=== PATIENT | male | born 1945 | race Caucasian/White ===

== ENCOUNTER 2016-11-02 06:43 | Emergency (ER) | payer MEDICARE, SELFPAY ==
[2016-11-02] MEDS ORDERED: HYDROmorphone 1 MG/ML 1 ML SYRINGE IVP STA ×2 (07:28→09:16)
[2016-11-02] MEDS ORDERED: RX INFO: IV CONTRAST WAS GIVEN 1 EACH MISC MISCELLANE PRN (07:28)
[2016-11-02] MEDS ORDERED: SODIUM CHLORIDE 0.9% 1,000 ML IV STA ×2 (07:28)
[2016-11-02] MEDS ORDERED: ONDANSETRON 4 MG/2 ML VIAL IVP STA (07:28)
--- NOTE | 2016-11-02 07:38 | ED ---
General Adult HPI - General Chief complaint: Abdominal Pain Stated complaint: ABD PAIN,BACK PAIN Time Seen by Provider: 11/02/16 07:18 Source: patient, family, RN notes reviewed, old records reviewed Mode of arrival: ambulatory Limitations: no limitations - History of Present Illness Initial comments: This is a 71-year-old male here today for evaluation of back pain. Right flank pain and right back pain rating her abdomen and groin. Patient does have history of back pain and spinal stenosis, also has history of kidney stones. Patient can't say for sure if this feels like prior kidney stones. He has had nausea vomiting no fever no diarrhea. No significant abdominal pain no problems with appetite. He did take his pain medication at home with no help - Related Data Home Medications Medication Instructions Recorded Confirmed Aspirin 81 mg PO DAILY 04/25/16 11/02/16 Clopidogrel [Plavix] 75 mg PO DAILY 04/25/16 11/02/16 Furosemide [Lasix] 20 mg PO DAILY 04/25/16 11/02/16 Levothyroxine Sodium [Synthroid] 175 mcg PO DAILY 04/25/16 11/02/16 Lisinopril-Hctz 20-25 mg 1 tab PO DAILY 04/25/16 11/02/16 [Zestoretic 20-25] Metoprolol Succinate [Toprol XL] 12.5 mg PO DAILY 04/25/16 11/02/16 Multivitamins, Thera [Multivitamin] 1 tab PO DAILY 04/25/16 11/02/16 Nitroglycerin Sl Tabs [Nitrostat] 0.4 mg SUBLINGUAL Q5M PRN 04/25/16 11/02/16 Potassium Gluconate 595 mg PO DAILY 04/25/16 11/02/16 Sertraline [Zoloft] 50 mg PO DAILY 04/25/16 11/02/16 metFORMIN HCL [Glucophage] 500 mg PO BID 04/25/16 11/02/16 traMADol HCL [Ultram] 100 mg PO Q6HR PRN 04/25/16 11/02/16 Atorvastatin [Lipitor] 40 mg PO HS 11/02/16 11/02/16 Ranitidine HCl [Zantac] 300 mg PO HS 11/02/16 11/02/16 Allergies Allergy/AdvReac Type Severity Reaction Status Date / Time morphine Allergy Dyspnea Verified 11/02/16 06:50 oxycodone HCl Allergy Dyspnea Verified 11/02/16 06:50 [From OxyContin] Review of Systems ROS Statement: Those systems with pertinent positive or pertinent negative responses have been documented in the HPI. ROS Other: All systems not noted in ROS Statement are negative. Past Medical History Past Medical History: Coronary Artery Disease (CAD), COPD, Diabetes Mellitus, GERD/Reflux, Hyperlipidemia, Hypertension, Thyroid Disorder Additional Past Medical History / Comment(s): CHRONIC BACK History of Any Multi-Drug Resistant Organisms: None Reported Past Surgical History: Appendectomy, Hernia Repair, Orthopedic Surgery Additional Past Surgical History / Comment(s): LEFT ARM, SINUS SURGERY, LEFT LEG Past Psychological History: No Psychological Hx Reported Smoking Status: Former smoker Past Alcohol Use History: None Reported Past Drug Use History: None Reported General Exam Limitations: no limitations General appearance: alert, in no apparent distress Head exam: Present: atraumatic, normocephalic, normal inspection Eye exam: Present: normal appearance, PERRL, EOMI. Absent: scleral icterus, conjunctival injection, periorbital swelling ENT exam: Present: normal exam, mucous membranes moist Neck exam: Present: normal inspection. Absent: tenderness, meningismus, lymphadenopathy Respiratory exam: Present: normal lung sounds bilaterally. Absent: respiratory distress, wheezes, rales, rhonchi, stridor Cardiovascular Exam: Present: regular rate, normal rhythm, normal heart sounds. Absent: systolic murmur, diastolic murmur, rubs, gallop, clicks GI/Abdominal exam: Present: soft, normal bowel sounds. Absent: distended, tenderness, guarding, rebound, rigid Extremities exam: Present: normal inspection, full ROM, normal capillary refill. Absent: tenderness, pedal edema, joint swelling, calf tenderness Back exam: Present: normal inspection Neurological exam: Present: alert, oriented X3, CN II-XII intact Psychiatric exam: Present: normal affect, normal mood Skin exam: Present: warm, dry, intact, normal color. Absent: rash Course Vital Signs 11/02/16 11/02/16 11/02/16 06:45 08:06 10:27 Temperature 97.9 F 97.7 F 97.8 F Pulse Rate 53 L 53 L 54 L Respiratory 18 16 16 Rate Blood Pressure 154/69 123/83 138/61 O2 Sat by Pulse 95 88 L 94 L Oximetry - Reevaluation(s) Reevaluation #1: 11/02/16 10:40 At this time patient's pain is improved EKG Findings - EKG Comments: EKG Findings:: EKG shows sinus Picardi rate 73, LA 186, QRS 106, QTC 418 Medical Decision Making - Medical Decision Making 16 mL the ER for evaluation of flank pain. Right-sided kidney stone. We'll treat appropriately and discharged home, kidney function is fine, no UTI - Lab Data Result diagrams: 11/02/16 07:54 11/02/16 07:54 Lab Results 11/02/16 11/02/16 11/02/16 Range/Units 07:54 07:54 07:54 WBC 10.4 (3.8-10.6) k/uL RBC 5.08 (4.30-5.90) m/uL Hgb 15.5 (13.0-17.5) gm/dL Hct 46.9 (39.0-53.0) % MCV 92.4 (80.0-100.0) fL MCH 30.6 (25.0-35.0) pg MCHC 33.1 (31.0-37.0) g/dL RDW 13.0 (11.5-15.5) % Plt Count 180 (150-450) k/uL Neutrophils % 80 % Lymphocytes % 13 % Monocytes % 4 % Eosinophils % 1 % Basophils % 1 % Neutrophils # 8.4 H (1.3-7.7) k/uL Lymphocytes # 1.3 (1.0-4.8) k/uL Monocytes # 0.4 (0-1.0) k/uL Eosinophils # 0.1 (0-0.7) k/uL Basophils # 0.1 (0-0.2) k/uL PT (9.0-12.0) sec INR (<1.1) APTT (22.0-30.0) sec Sodium 142 (137-145) mmol/L Potassium 4.2 (3.5-5.1) mmol/L Chloride 99 (98-107) mmol/L Carbon Dioxide 29 (22-30) mmol/L Anion Gap 14 mmol/L BUN 30 H (9-20) mg/dL Creatinine 1.33 H (0.66-1.25) mg/dL Est GFR (MDRD) Af Amer >60 (>60 ml/min/1.73 sqM) Est GFR (MDRD) Non-Af 53 (>60 ml/min/1.73 sqM) Glucose 143 H (74-99) mg/dL Plasma Lactic Acid Clyde (0.7-2.0) mmol/L Calcium 10.1 (8.4-10.2) mg/dL Phosphorus 3.4 (2.5-4.5) mg/dL Magnesium 3.0 H (1.6-2.3) mg/dL Total Bilirubin 0.9 (0.2-1.3) mg/dL AST 37 (17-59) U/L ALT 48 (21-72) U/L Alkaline Phosphatase 74 (38-126) U/L Total Creatine Kinase 84 (55-170) U/L CK-MB (CK-2) 2.0 (0.0-2.4) ng/mL CK-MB (CK-2) Rel Index 2.4 Troponin I 0.016 (0.000-0.034) ng/mL Total Protein 7.5 (6.3-8.2) g/dL Albumin 4.4 (3.5-5.0) g/dL Urine Color Urine Appearance (Clear) Urine pH (5.0-8.0) Ur Specific Adams (1.001-1.035) Urine Protein (Negative) Urine Glucose (UA) (Negative) Urine Ketones (Negative) Urine Blood (Negative) Urine Nitrite (Negative) Urine Bilirubin (Negative) Urine Urobilinogen (<2.0) mg/dL Ur Leukocyte Esterase (Negative) Urine RBC (0-5) /hpf Urine WBC (0-5) /hpf 11/02/16 11/02/16 11/02/16 Range/Units 07:54 07:54 09:05 WBC (3.8-10.6) k/uL RBC (4.30-5.90) m/uL Hgb (13.0-17.5) gm/dL Hct (39.0-53.0) % MCV (80.0-100.0) fL MCH (25.0-35.0) pg MCHC (31.0-37.0) g/dL RDW (11.5-15.5) % Plt Count (150-450) k/uL Neutrophils % % Lymphocytes % % Monocytes % % Eosinophils % % Basophils % % Neutrophils # (1.3-7.7) k/uL Lymphocytes # (1.0-4.8) k/uL Monocytes # (0-1.0) k/uL Eosinophils # (0-0.7) k/uL Basophils # (0-0.2) k/uL PT 10.5 (9.0-12.0) sec INR 1.0 (<1.1) APTT 22.7 (22.0-30.0) sec Sodium (137-145) mmol/L Potassium (3.5-5.1) mmol/L Chloride (98-107) mmol/L Carbon Dioxide (22-30) mmol/L Anion Gap mmol/L BUN (9-20) mg/dL Creatinine (0.66-1.25) mg/dL Est GFR (MDRD) Af Amer (>60 ml/min/1.73 sqM) Est GFR (MDRD) Non-Af (>60 ml/min/1.73 sqM) Glucose (74-99) mg/dL Plasma Lactic Acid Clyde 1.4 (0.7-2.0) mmol/L Calcium (8.4-10.2) mg/dL Phosphorus (2.5-4.5) mg/dL Magnesium (1.6-2.3) mg/dL Total Bilirubin (0.2-1.3) mg/dL AST (17-59) U/L ALT (21-72) U/L Alkaline Phosphatase (38-126) U/L Total Creatine Kinase (55-170) U/L CK-MB (CK-2) (0.0-2.4) ng/mL CK-MB (CK-2) Rel Index Troponin I (0.000-0.034) ng/mL Total Protein (6.3-8.2) g/dL Albumin (3.5-5.0) g/dL Urine Color Light Red Urine Appearance Clear (Clear) Urine pH 6.5 (5.0-8.0) Ur Specific Adams 1.016 (1.001-1.035) Urine Protein Trace H (Negative) Urine Glucose (UA) Negative (Negative) Urine Ketones Negative (Negative) Urine Blood Large H (Negative) Urine Nitrite Negative (Negative) Urine Bilirubin Negative (Negative) Urine Urobilinogen 2.0 (<2.0) mg/dL Ur Leukocyte Esterase Negative (Negative) Urine RBC >182 H (0-5) /hpf Urine WBC 5 (0-5) /hpf - Radiology Data Radiology results: report reviewed (CT head and pelvis shows right-sided kidney stone,), image reviewed Disposition Clinical Impression: Calculus of right kidney Disposition: HOME SELF-CARE Condition: Good Instructions: Kidney Stones (ED) Referrals: Jarrett Solis DO [Primary Care Provider] - 1-2 days
[2016-11-02 08:23] LABS: Basophils # (A) 0.1 k/uL (0-0.2); Basophils % (A) 1 %; CH 31.2; CHCM 33.9; Eosinophils # (A) 0.1 k/uL (0-0.7); Eosinophils % (A) 1 %; HCT 46.9 % (39.0-53.0); HDW 2.35; HGB 15.5 gm/dL (13.0-17.5); Luc # (Auto) 0.13; Luc % (Auto) 1; Lymphocytes # (A) 1.3 k/uL (1.0-4.8); Lymphocytes % (A) 13 %; MCH 30.6 pg (25.0-35.0); MCHC 33.1 g/dL (31.0-37.0); MCV 92.4 fL (80.0-100.0); Mean Platelet Volume 9.5; Monocytes # (A) 0.4 k/uL (0-1.0); Monocytes % (A) 4 %; Neutrophils # (A) 8.4 k/uL (1.3-7.7); Neutrophils % (A) 80 %; RBC 5.08 m/uL (4.30-5.90); WBC 10.4 k/uL (3.8-10.6); WBC (Perox) 9.96
[2016-11-02 08:44] LABS: ALT 48 U/L (21-72); AST 37 U/L (17-59); Alkaline Phosphatase 74 U/L (38-126); Anion Gap 14 mmol/L; Blood Urea Nitrogen 30 mg/dL (9-20); Calcium 10.1 mg/dL (8.4-10.2); Carbon Dioxide 29 mmol/L (22-30); Chloride 99 mmol/L (98-107); Glucose 143 mg/dL (74-99); Non-African American GFR(MDRD) 53 (>60 ml/min/1.73 sqM); Phosphorous 3.4 mg/dL (2.5-4.5); Potassium 4.2 mmol/L (3.5-5.1); Sodium 142 mmol/L (137-145); Total Bilirubin 0.9 mg/dL (0.2-1.3); Total Protein 7.5 g/dL (6.3-8.2)
[2016-11-02 08:49] LABS: Partial Thromboplastin Time 22.7 sec (22.0-30.0); Prothrombin Time 10.5 sec (9.0-12.0)
[2016-11-02] MEDS ORDERED: ACETAMINOPHEN IV (For NPO) 1,000 MG in EMPTY BAG 1 BAG IVPB STA (09:16)
[2016-11-02] MEDS ORDERED: KETOROLAC 30 MG/ML 1 ML VIAL IVP STA (09:16)
[2016-11-02 09:19] LABS: Troponin I 0.016 ng/mL (0.000-0.034)
[2016-11-02 09:31] LABS: Appearance,Urine Clear (Clear); Bilirubin,Urine Negative (Negative); Glucose,Urine (UA) Negative (Negative); Ketones,Urine Negative (Negative); Leukocyte Esterase,Urine Negative (Negative); Nitrite,Urine Negative (Negative); PH, Urine 6.5 (5.0-8.0); Particle Count 3547; Protein,Urine Trace (Negative); RBC,Urine >182 /hpf (0-5); Specific Gravity,Urine 1.016 (1.001-1.035); UA Billing (MACRO vs. MICRO) MICRO; WBC,Urine 5 /hpf (0-5)
--- NOTE | 2016-11-02 10:16 | CT ---
EXAMINATION TYPE: CT abdomen pelvis w con DATE OF EXAM: 11/02/2016 9:51 AM COMPARISON: Prior CT 25 April 2016 HISTORY: Rt flank and back pain CT DLP: 2981 mGycm Automated exposure control for dose reduction was used. TECHNIQUE: Helical acquisition of images was performed from the lung bases through the pelvis. CONTRAST: Performed without Oral Contrast and with IV Contrast, patient injected with 80 mL of Visipaque 320. FINDINGS: LUNG BASES: No significant abnormality is appreciated.Suspect coronary artery calcifications. LIVER/GB: Liver shows low attenuation. There is borderline enlargement. Gallbladder is normal. PANCREAS: No significant abnormality is seen. SPLEEN: No significant abnormality is seen. ADRENALS: Fat density right adrenal mass is noted and is stable on the right measuring only 12 mm KIDNEYS: Bilateral renal calculi are again noted, single calculus of the lower pole of the left kidne y measures 7-8 mm. Lower pole calculi on the right major 6 to 7 mm and approximately 9-10 mm, mid nadeen e posterior right calculus is 1 cm. Proximal right ureteral calculus is present which is developed in the interval, there is mild right-sided hydronephrosis. The proximal ureteral calculus on the right measures approximately 5 mm. Nephrogram on the right may be slightly reduced. RETROPERITONEAL ADENOPATHY: None visualized REPRODUCTIVE ORGANS: Prostate calcification present. URINARY BLADDER: No significant abnormality is seen. PELVIC ADENOPATHY: None visualized. OSSEOUS STRUCTURES: No significant interval change BOWEL: No significant abnormality is seen. OTHER: Focus of attenuation in the subcutaneous fat may be related to scar, there is some atrophy of the lateral aspect of the rectus musculature near this level, findings are stable IMPRESSION: PROXIMAL RIGHT URETERAL CALCULUS APPEARS OBSTRUCTIVE, THERE IS BILATERAL NEPHROLITHIASIS.
[2016-11-02 10:28] VITALS: TEMP 97.8
[2016-11-02 10:47] VITALS: BP 127/57; PULSE 53; RESP 18
== END 2016-11-02 11:10 | disposition home or self-care (01) ==
LOC: EC 06:43
DX: N20.2 Calculus of kidney with calculus of ureter (principal); I25.10 Atherosclerotic heart disease of native coronary artery without angina pectoris; J44.9 Chronic obstructive pulmonary disease, unspecified; E11.9 Type 2 diabetes mellitus without complications; K21.9 Gastro-esophageal reflux disease without esophagitis; E78.5 Hyperlipidemia, unspecified; I10 Essential (primary) hypertension; E07.9 Disorder of thyroid, unspecified; Z87.891 Personal history of nicotine dependence; Z79.82 Long term (current) use of aspirin; Z79.02 Long term (current) use of antithrombotics/antiplatelets; Z79.899 Other long term (current) drug therapy; Z79.84 Long term (current) use of oral hypoglycemic drugs; Z88.5 Allergy status to narcotic agent
CPT/HCPCS: 99285 ×2; 96374 ×2; 96375 ×4; 96376 ×2; 96361 ×4; 36415; 80053; 82550; 82553; 83605; 83735; 84100; 84484; 85025; 85610; 85730; 81001; 87086; 74177; Q9967; J2405; J1885; J1170; J0131; 93005

== ENCOUNTER → 2016-11-27 | Outpatient (CLI) | payer MEDICARE ==
[2016-11-27 10:31] LABS: Appearance,Urine Clear (Clear); Bilirubin,Urine Negative (Negative); Glucose,Urine (UA) Negative (Negative); Ketones,Urine Negative (Negative); Leukocyte Esterase,Urine Negative (Negative); Nitrite,Urine Negative (Negative); PH, Urine 6.5 (5.0-8.0); Protein,Urine Negative (Negative); Specific Gravity,Urine 1.014 (1.001-1.035); UA Billing (MACRO vs. MICRO) CHEM; Urobilinogen,Urine <2.0 mg/dL (<2.0)
[2016-11-27 11:13] LABS: ALT 38 U/L (21-72); AST 30 U/L (17-59); Anion Gap 12 mmol/L; Blood Urea Nitrogen 26 mg/dL (9-20); Calcium 9.9 mg/dL (8.4-10.2); Carbon Dioxide 27 mmol/L (22-30); Chloride 101 mmol/L (98-107); Glucose 104 mg/dL (74-99); Non-African American GFR(MDRD) >60 (>60 ml/min/1.73 sqM); Potassium 4.2 mmol/L (3.5-5.1); Sodium 140 mmol/L (137-145)
== END | disposition home or self-care (01) ==
LOC: LABWHC1 09:53
PROVIDERS: ATTEND Internal Medicine
DX: I25.10 Atherosclerotic heart disease of native coronary artery without angina pectoris (principal); E11.22 Type 2 diabetes mellitus with diabetic chronic kidney disease; I10 Essential (primary) hypertension; E78.2 Mixed hyperlipidemia
CPT/HCPCS: 36415; 80048; 81003; 83036; 84450; 84460

== ENCOUNTER → 2016-12-31 | Outpatient (CLI) | payer OTHER, MEDICARE ==
--- NOTE | 2017-01-01 00:50 | US ---
EXAMINATION TYPE: US kidneys/renal and bladder DATE OF EXAM: 12/31/2016 3:00 PM COMPARISON: Correlation CT 11/02/2016 CLINICAL HISTORY: 71-year-old male N20.0 CALCULUS OF KIDNEY. Kidney stones TECHNIQUE: Multiple sonographic images of the kidneys and bladder were obtained. FINDINGS: Right Kidney: 9.9 x 5.3 x 4.5 cm without appreciable hydronephrosis. There is a 1.6 cm shadowing ech ogenic focus within the lower pole. Additionally, there is a 1.8 cm hypoechoic lesion within the midp ole. When correlating with prior CT, findings suggest a central cyst. Internal echoes are felt to be artifactual or could represent debris. Left Kidney: 12.3 x 5.4 x 4.9 cm without hydronephrosis. There is a 1.0 cm echogenic shadowing focus within the lower pole. No gross abnormality of the urine distended bladder. Both ureteral jets are visualized. IMPRESSION: 1. Bilateral nephrolithiasis measuring up to 1.8 cm on the right. 2. No hydronephrosis seen on the either side. Both ureteral jets are also visualized.
== END | disposition home or self-care (01) ==
LOC: RADUSWWP 14:13
PROVIDERS: ATTEND Urology
DX: N20.0 Calculus of kidney (principal)
CPT/HCPCS: 76770

== ENCOUNTER → 2017-03-25 | Outpatient (CLI) | payer OTHER, MEDICARE ==
[2017-03-25 12:40] LABS: CH 31.4; CHCM 33.2; HCT 43.7 % (39.0-53.0); HDW 2.37; HGB 14.2 gm/dL (13.0-17.5); MCHC 32.6 g/dL (31.0-37.0); MCV 95.2 fL (80.0-100.0); Mean Platelet Volume 9.6; RBC 4.59 m/uL (4.30-5.90); RDW 14.3 % (11.5-15.5); WBC 8.4 k/uL (3.8-10.6)
[2017-03-25 12:50] LABS: Appearance,Urine Clear (Clear); Bilirubin,Urine Negative (Negative); Glucose,Urine (UA) Negative (Negative); Ketones,Urine Negative (Negative); Leukocyte Esterase,Urine Negative (Negative); Nitrite,Urine Negative (Negative); Protein,Urine Negative (Negative); Specific Gravity,Urine 1.014 (1.001-1.035); UA Billing (MACRO vs. MICRO) CHEM
[2017-03-25 18:49] LABS: Hemoglobin A1C 5.8 % (4.2-6.1)
[2017-03-26 01:58] LABS: Urine Creatinine 98.3 mg/dL
== END | disposition home or self-care (01) ==
LOC: LABWHC1 12:10
PROVIDERS: ATTEND Internal Medicine
DX: E11.9 Type 2 diabetes mellitus without complications (principal); I10 Essential (primary) hypertension; E78.2 Mixed hyperlipidemia; E03.9 Hypothyroidism, unspecified; I25.10 Atherosclerotic heart disease of native coronary artery without angina pectoris
CPT/HCPCS: 36415; 80061; 81003; 82043; 82570; 83036; 84439; 84443; 84450; 84460; 85027; 86431

== ENCOUNTER → 2017-04-23 | Outpatient (CLI) | payer MEDICARE ==
--- NOTE | 2017-04-23 15:41 | CONS ---
CONSULTATION This is a 72-year-old male patient, diagnosed having obstructive sleep apnea around 20 years ago. Back then, the patient was seen by the ENT and had chronic sinus disease for which he underwent a sinus surgery and this was complicated by development of a CSF leak. Subsequently required several other surgeries to control the CSF leak and he was unable to use the CPAP for that reason. Ultimately, it was recommended not to use CPAP due to the CSF complications that occurred and the patient was given oxygen. Over the years, the patient's condition has gotten worse and currently he is coming in with loud snoring with his apnea and chronic hypersomnia with sleepiness. His sleep/wake cycle has become irregular. He goes to bed somewhere between 11 pm to 1 am and he wakes up between 10 am to noon time. He is tired and sleepy and fatigued throughout the day. He snores loud. He tries to sleep on his side as he feels more comfortable. His sinus disease is improved and he is able to breathe through his nose and mouth. At times, he is a mouth breather. He is coming in for reevaluation. No nocturia. No waking up in the middle of the night gasping or choking. No grinding of the teeth. No sleepwalking or sleep talking. No restlessness of the lower extremities. PAST MEDICAL HISTORY: 1. Obstructive sleep apnea, details as mentioned above. 2. CSF leak, a complication of sinus surgery. 3. Hypertension. 4. Hypothyroidism. 5. Coronary artery disease. 6. Obesity. 7. Osteoarthritis. 8. Spinal stenosis with chronic lumbar pain. 9. Acid reflux. SURGICAL HISTORY: Include sinus surgery x3 with repair of a CSF leak, hernia repair, left arm surgery. ALLERGIES: MORPHINE and OXYCONTIN. OUTPATIENT MEDICATION LIST: A combination of tramadol 50 mg every 6-8 hours on a p.r.n. basis, Cyuln-[id number]-Igzv, potassium tablets, Nitrostat p.r.n., Plavix 75 q. day, aspirin 81 q. day, Zoloft 150 q. day, Lasix 20 q. day, Synthroid 175 mcg p.o. q. day, Zestoretic 20/25 one tab q. day, metformin 500 mg twice a day. SOCIAL HISTORY: Not a smoker. No history of alcohol. No history of IV drugs. FAMILY HISTORY: Sister has obstructive sleep apnea. Mother has hypertension. Brother has prostate cancer and father had [place] pneumoconiosis. REVIEW OF SYSTEMS: A 12-point review of system was done and the positive findings are mentioned above in the history of present illness. BP is 134/70, pulse 52, respirations 16, temperature 98.0, saturation 93% on room air. Weight is 276. Height is 5, 9, neck size is 18 inches. GENERAL APPEARANCE: Calm, comfortable. HEENT showed crowing of the posterior pharynx, Mallampati class IV. LUNGS: Clear to auscultation. Heart sounds are regular rate and rhythm. Normal S1, S2. ABDOMEN: Soft, nontender. No organomegaly. EXTREMITIES: No edema. No cyanosis or clubbing. IMPRESSION: 1. Symptomatic obstructive sleep apnea. Patient is coming in for reevaluation as the patient has become symptomatic over the years. His current Beaver score is at 12. 2. Obesity body mass index of 40.1. 3. Previous history of CSF leak. 4. Post sinus surgery, currently stable. 5. Hypertension. 6. Hypothyroidism. 7. Coronary artery disease. 8. Osteoarthritis. 9. Chronic lumbar stenosis and pain. 10.Acid reflux. PLAN: 1. Will proceed with a screening polysomnogram. 2. Will assess the presence and severity of suspected sleep apnea, recommend CPAP treatment accordingly. 3. Encourage weight loss. 4. Optimize sleep hygiene measures. 5. Will continue to follow. MMLEAL / IJN: [id number] /
== END ==
LOC: SLEEP 13:03
PROVIDERS: ATTEND Internal Medicine Critical Care Medicine
DX: G47.33 Obstructive sleep apnea (adult) (pediatric) (principal); E66.9 Obesity, unspecified; I10 Essential (primary) hypertension; I25.10 Atherosclerotic heart disease of native coronary artery without angina pectoris; E03.9 Hypothyroidism, unspecified; M19.90 Unspecified osteoarthritis, unspecified site; M48.06 Spinal stenosis, lumbar region; K21.9 Gastro-esophageal reflux disease without esophagitis; Z88.5 Allergy status to narcotic agent; Z88.8 Allergy status to other drugs, medicaments and biological substances; Z79.899 Other long term (current) drug therapy; Z79.82 Long term (current) use of aspirin; Z79.84 Long term (current) use of oral hypoglycemic drugs
CPT/HCPCS: 99211

== ENCOUNTER → 2017-11-20 | Outpatient (CLI) | payer MEDICARE ==
[2017-11-20 09:01] LABS: HCT 43.3 % (39.0-53.0); HGB 14.2 gm/dL (13.0-17.5); MCH 29.3 pg (25.0-35.0); MCHC 32.8 g/dL (31.0-37.0); MCV 89.2 fL (80.0-100.0); Mean Platelet Volume 8.6; Platelet Count 183 k/uL (150-450); RBC 4.85 m/uL (4.30-5.90); RDW 14.2 % (11.5-15.5); WBC 8.6 k/uL (3.8-10.6)
[2017-11-20 09:09] LABS: Appearance,Urine Clear (Clear); Bilirubin,Urine Negative (Negative); Blood,Urine Trace (Negative); Color,Urine Yellow; Glucose,Urine (UA) Negative (Negative); Ketones,Urine Negative (Negative); Leukocyte Esterase,Urine Negative (Negative); Mucus,Urine Rare /hpf; Nitrite,Urine Negative (Negative); PH, Urine 5.5 (5.0-8.0); Protein,Urine Negative (Negative); RBC,Urine 10 /hpf (0-5); Specific Gravity,Urine 1.018 (1.001-1.035); Squamous Epithelial Cell,Urine 1 /hpf (0-4); Urobilinogen,Urine <2.0 mg/dL (<2.0); WBC,Urine 1 /hpf (0-5)
[2017-11-20 09:43] LABS: Calcium 10.1 mg/dL (8.4-10.2); Total Bilirubin 0.4 mg/dL (0.2-1.3); Total Protein 6.8 g/dL (6.3-8.2)
[2017-11-20 09:49] LABS: T4, Free (Free Thyroxine) 0.85 ng/dL (0.78-2.19)
[2017-11-20 20:55] LABS: Hemoglobin A1C 5.6 % (4.0-6.0)
== END | disposition home or self-care (01) ==
LOC: LABWHC1 08:37
PROVIDERS: ATTEND Internal Medicine
DX: E11.9 Type 2 diabetes mellitus without complications (principal); I10 Essential (primary) hypertension; E78.2 Mixed hyperlipidemia; E03.9 Hypothyroidism, unspecified
CPT/HCPCS: 36415; 80053; 80061; 81001; 83036; 84439; 84443; 85027

== ENCOUNTER → 2018-03-24 | Outpatient (CLI) | payer MEDICARE ==
[2018-03-24 10:54] LABS: Appearance,Urine Clear (Clear); Bilirubin,Urine Negative (Negative); Blood,Urine Negative (Negative); Color,Urine Yellow; Glucose,Urine (UA) Negative (Negative); Ketones,Urine Negative (Negative); Leukocyte Esterase,Urine Negative (Negative); Nitrite,Urine Negative (Negative); Protein,Urine Negative (Negative); Specific Gravity,Urine 1.015 (1.001-1.035)
[2018-03-24 11:09] LABS: HCT 46.7 % (39.0-53.0); HGB 14.8 gm/dL (13.0-17.5); MCH 28.6 pg (25.0-35.0); MCHC 31.6 g/dL (31.0-37.0); MCV 90.6 fL (80.0-100.0); Mean Platelet Volume 8.2; Platelet Count 194 k/uL (150-450); RBC 5.16 m/uL (4.30-5.90); RDW 13.9 % (11.5-15.5); WBC 7.4 k/uL (3.8-10.6)
[2018-03-24 11:21] LABS: Albumin 4.3 g/dL (3.5-5.0); Calcium 9.9 mg/dL (8.4-10.2); Potassium 4.7 mmol/L (3.5-5.1); Total Bilirubin 0.6 mg/dL (0.2-1.3); Total Protein 6.9 g/dL (6.3-8.2)
[2018-03-24 18:16] LABS: Hemoglobin A1C 5.8 % (4.0-6.0)
== END | disposition home or self-care (01) ==
LOC: LABWHC1 10:02
PROVIDERS: ATTEND Internal Medicine
DX: E11.40 Type 2 diabetes mellitus with diabetic neuropathy, unspecified (principal); E78.00 Pure hypercholesterolemia, unspecified; I10 Essential (primary) hypertension
CPT/HCPCS: 36415; 80053; 80061; 81003; 82043; 82570; 83036; 85027; 86803

== ENCOUNTER → 2018-08-26 | Outpatient (CLI) | payer MEDICARE ==
[2018-08-26 12:39] LABS: Appearance,Urine Clear (Clear); Bilirubin,Urine Negative (Negative); Blood,Urine Negative (Negative); Color,Urine Yellow; Glucose,Urine (UA) Negative (Negative); Ketones,Urine Negative (Negative); Leukocyte Esterase,Urine Negative (Negative); Nitrite,Urine Negative (Negative); Protein,Urine Negative (Negative); Specific Gravity,Urine 1.013 (1.001-1.035); Urobilinogen,Urine <2.0 mg/dL (<2.0)
[2018-08-26 16:36] LABS: Albumin 4.3 g/dL (3.80-4.90); Albumin/Globulin Ratio 2.05 (1.20-2.10); Anion Gap 7.9 mmol/L (4.00-12.00); Calcium 9.5 mg/dL (8.7-10.3); Carbon Dioxide 28.1 mmol/L (21.6-31.8); Globulin 2.1 g/dL (1.6-3.3); Potassium 4.2 mmol/L (3.5-5.5); Total Bilirubin 0.6 mg/dL (0.2-1.2); Total Protein 6.4 g/dL (6.2-8.2)
[2018-08-26 16:45] LABS: T4, Free (Free Thyroxine) 1.7 ng/dL (0.80-1.80)
[2018-08-26 18:21] LABS: Hemoglobin A1C 5.7 % (4.0-6.0)
== END | disposition home or self-care (01) ==
LOC: LABWHC1 10:08
PROVIDERS: ATTEND Internal Medicine
DX: I10 Essential (primary) hypertension (principal); E11.40 Type 2 diabetes mellitus with diabetic neuropathy, unspecified; G03.9 Meningitis, unspecified
CPT/HCPCS: 36415; 80053; 81003; 83036; 84439; 84443

== ENCOUNTER → 2019-02-23 | Outpatient (CLI) | payer MEDICARE ==
[2019-02-23 13:05] LABS: HCT 45.1 % (39.0-53.0); HGB 14.6 gm/dL (13.0-17.5); MCH 29.8 pg (25.0-35.0); MCHC 32.4 g/dL (31.0-37.0); Mean Platelet Volume 8.4; Platelet Count 197 k/uL (150-450); WBC 7.9 k/uL (3.8-10.6)
[2019-02-23 13:22] LABS: Appearance,Urine Clear (Clear); Bilirubin,Urine Negative (Negative); Blood,Urine Negative (Negative); Color,Urine Yellow; Glucose,Urine (UA) Negative (Negative); Ketones,Urine Negative (Negative); Leukocyte Esterase,Urine Trace (Negative); Mucus,Urine Rare /hpf; Nitrite,Urine Negative (Negative); PH, Urine 5.5 (5.0-8.0); Protein,Urine Negative (Negative); Specific Gravity,Urine 1.013 (1.001-1.035); Squamous Epithelial Cell,Urine 1 /hpf (0-4); Urobilinogen,Urine <2.0 mg/dL (<2.0); WBC,Urine 3 /hpf (0-5)
[2019-02-23 18:09] LABS: African American GFR (CKD) 77.3 (60.0-200.0); Albumin 4.3 g/dL (3.80-4.90); Albumin/Globulin Ratio 2.26 (1.60-3.17); Anion Gap 8.4 mmol/L (4.00-12.00); BUN/Creat Ratio 20.91 Ratio (12.00-20.00); Calcium 9.9 mg/dL (8.7-10.3); Carbon Dioxide 26.6 mmol/L (21.6-31.8); Globulin 1.9 g/dL (1.6-3.3); LDL Cholesterol,Calculated 73.2 mg/dL (0.0-131.0); Potassium 4.6 mmol/L (3.5-5.5); Total Bilirubin 0.7 mg/dL (0.2-1.2); Total Protein 6.2 g/dL (6.2-8.2); VLDL Calculation 18.8 mg/dL (5.00-40.00)
[2019-02-23 19:19] LABS: Hemoglobin A1C 5.7 % (4.0-6.0)
== END | disposition home or self-care (01) ==
LOC: LABWHC1 12:07
PROVIDERS: ATTEND Internal Medicine
DX: E11.9 Type 2 diabetes mellitus without complications (principal); I10 Essential (primary) hypertension; E78.2 Mixed hyperlipidemia
CPT/HCPCS: 36415; 80053; 80061; 81001; 82043; 82570; 83036; 85027

== ENCOUNTER → 2020-04-29 | Outpatient (CLI) | payer MEDICARE ==
[2020-04-29 12:33] LABS: Appearance,Urine Clear (Clear); Bilirubin,Urine Negative (Negative); Blood,Urine Large (Negative); Color,Urine Yellow; Glucose,Urine (UA) Negative (Negative); Hyaline Casts,Urine 1 /lpf (0-2); Ketones,Urine Negative (Negative); Leukocyte Esterase,Urine Small (Negative); Mucus,Urine Rare /hpf; Nitrite,Urine Negative (Negative); Protein,Urine Trace (Negative); RBC,Urine 135 /hpf (0-5); Specific Gravity,Urine 1.021 (1.001-1.035); Squamous Epithelial Cell,Urine <1 /hpf (0-4); Urobilinogen,Urine <2.0 mg/dL (<2.0); WBC,Urine 5 /hpf (0-5)
[2020-04-29 12:37] LABS: HCT 48.5 % (39.0-53.0); HGB 15.5 gm/dL (13.0-17.5); MCH 30.4 pg (25.0-35.0); MCV 95.1 fL (80.0-100.0); Mean Platelet Volume 9.1; Platelet Count 175 k/uL (150-450); RDW 13.5 % (11.5-15.5); WBC 8.4 k/uL (3.8-10.6)
[2020-04-29 20:30] LABS: Hemoglobin A1C 6.1 % (4.0-6.0)
[2020-04-29 21:53] LABS: African American GFR (CKD) 76.8 (60.0-200.0); Albumin 4.3 g/dL (3.80-4.90); Albumin/Globulin Ratio 2.05 (1.60-3.17); Anion Gap 6.7 mmol/L (4.00-12.00); BUN/Creat Ratio 16.36 Ratio (12.00-20.00); Calcium 10.1 mg/dL (8.7-10.3); Carbon Dioxide 30.3 mmol/L (21.6-31.8); Chol/HDL Ratio 2.54; Globulin 2.1 g/dL (1.6-3.3); LDL Cholesterol,Calculated 53.8 mg/dL (0.0-131.0); Non-African American GFR(CKD) 66.2 (60.0-200.0); Potassium 4.4 mmol/L (3.5-5.5); Total Bilirubin 0.7 mg/dL (0.3-1.2); Total Protein 6.4 g/dL (6.2-8.2); VLDL Calculation 17.2 mg/dL (5.00-40.00)
== END | disposition home or self-care (01) ==
LOC: LABWHC1 11:05
PROVIDERS: ATTEND Internal Medicine
DX: E11.40 Type 2 diabetes mellitus with diabetic neuropathy, unspecified (principal); I10 Essential (primary) hypertension; E78.00 Pure hypercholesterolemia, unspecified
CPT/HCPCS: 36415; 80053; 80061; 81001; 82043; 82570; 83036; 85027

== ENCOUNTER → 2021-01-25 | Outpatient (CLI) | payer MEDICARE ==
[2021-01-25 17:13] LABS: African American GFR (CKD) 62.3 (60.0-200.0); Albumin 4.4 g/dL (3.80-4.90); Albumin/Globulin Ratio 1.76 (1.60-3.17); Anion Gap 10.3 mmol/L (4.00-12.00); BUN/Creat Ratio 22.31 Ratio (12.00-20.00); Calcium 9.8 mg/dL (8.7-10.3); Carbon Dioxide 26.7 mmol/L (21.6-31.8); Globulin 2.5 g/dL (1.6-3.3); Non-African American GFR(CKD) 53.8 (60.0-200.0); Potassium 4.1 mmol/L (3.5-5.5); Total Bilirubin 0.4 mg/dL (0.3-1.2); Total Protein 6.9 g/dL (6.2-8.2)
[2021-01-25 17:21] LABS: PSA Annual Screen 0.8 ng/mL (0.0-4.0); T4, Free (Free Thyroxine) 1.2 ng/dL (0.80-1.80)
[2021-01-25 19:43] LABS: Hemoglobin A1C 5.7 % (4.0-6.0)
== END | disposition home or self-care (01) ==
LOC: LABWHC1 09:10
PROVIDERS: ATTEND Internal Medicine
DX: Z12.5 Encounter for screening for malignant neoplasm of prostate (principal); E11.40 Type 2 diabetes mellitus with diabetic neuropathy, unspecified; I10 Essential (primary) hypertension; E03.9 Hypothyroidism, unspecified
CPT/HCPCS: 84439; 80053; 84443; 83036; 36415; G0103

== ENCOUNTER → 2021-06-06 | Outpatient (CLI) | payer MEDICARE ==
[2021-06-06 16:04] LABS: Appearance,Urine Clear (Clear); Bilirubin,Urine Negative (Negative); Blood,Urine Moderate (Negative); Color,Urine Yellow; Glucose,Urine (UA) Negative (Negative); Hyaline Casts,Urine 3 /lpf (0-2); Ketones,Urine Negative (Negative); Leukocyte Esterase,Urine Negative (Negative); Mucus,Urine Rare /hpf; Nitrite,Urine Negative (Negative); Protein,Urine Trace (Negative); RBC,Urine 103 /hpf (0-5); Specific Gravity,Urine 1.017 (1.001-1.035); Squamous Epithelial Cell,Urine <1 /hpf (0-4); Urobilinogen,Urine <2.0 mg/dL (<2.0); WBC,Urine 2 /hpf (0-5)
[2021-06-06 22:56] LABS: Basophils # (A) 0.08 X 10*3/uL (0.00-0.10); Basophils % (A) 0.9 %; Eosinophils # (A) 0.44 X 10*3/uL (0.04-0.35); Eosinophils % (A) 5.1 %; HCT 42.4 % (39.6-50.0); HGB 13.7 g/dL (13.0-17.0); Lymphocytes % (A) 25.6 %; MCH 31.1 pg (27.0-32.0); MCHC 32.3 g/dL (32.0-37.0); MCV 96.4 fL (80.0-97.0); Monocytes # (A) 0.78 X 10*3/uL (0.20-1.00); Monocytes % (A) 9.1 %; Neutrophils % (A) 59.2 %; Platelet Count 195 X 10*3/uL (140-440); RDW 13.3 % (11.5-14.5); WBC 8.61 X 10*3/uL (4.50-10.00)
[2021-06-07 05:31] LABS: African American GFR (CKD) 41.5 (60.0-200.0); Albumin 4.5 g/dL (3.8-4.9); Albumin/Globulin Ratio 1.78 (1.60-3.17); Anion Gap 14.6 mmol/L (4.00-12.00); BUN/Creat Ratio 13.46 Ratio (12.00-20.00); Blood Urea Nitrogen 24.5 mg/dL (9.0-27.0); Carbon Dioxide 23.4 mmol/L (21.6-31.8); Globulin 2.5 g/dL (1.6-3.3); HDL Cholesterol 43.6 mg/dL (40.00-60.00); LDL Cholesterol,Calculated 63.2 mg/dL (0.0-131.0); Non-African American GFR(CKD) 35.8 (60.0-200.0); Potassium 4.8 mmol/L (3.5-5.5); Total Bilirubin 0.7 mg/dL (0.30-1.20); Total Protein 7.1 g/dL (6.2-8.2); VLDL Calculation 24.2 mg/dL (5.00-40.00)
== END | disposition home or self-care (01) ==
LOC: LABWHC1 15:19
PROVIDERS: ATTEND Internal Medicine
DX: E11.40 Type 2 diabetes mellitus with diabetic neuropathy, unspecified (principal); E78.2 Mixed hyperlipidemia; I10 Essential (primary) hypertension
CPT/HCPCS: 36415; 80053; 80061; 81001; 82043; 82570; 83036; 85025

== ENCOUNTER 2021-06-20 09:38 | Day surgery (SDC) | payer MEDICARE ==
[2021-06-15 15:16] VITALS: BMI 31.4
[~2021-06-20 09:38] MED LIST: LACTATED RINGERS 1,000 ML IV SCH
[2021-06-20 10:39] VITALS: TEMP 97.3
[2021-06-20] MEDS ORDERED: LIDOCAINE 1% (10MG/ML) FOR IV START INTRADERMA ONE (10:47)
[2021-06-20 10:48] LABS: Glucose,Whole Blood 77 mg/dL (75-99)
[2021-06-20] MEDS ORDERED: PROPOFOL 10 MG/ML 20 ML VIAL IV ONE (10:58)
--- NOTE | 2021-06-20 11:02 | P.GSHP ---
History of Present Illness H&P Date: 06/20/21 Chief Complaint: Epigastric pain, screening Patient here today for upper and lower endoscopy. Complains of mild epigastric pain occasionally. Some heartburn. Last colonoscopy many years ago. He believes it was normal. No family history of cancer. Past Medical History Past Medical History: Coronary Artery Disease (CAD), COPD, Diabetes Mellitus, Eye Disorder, GERD/Reflux, Hyperlipidemia, Hypertension, Thyroid Disorder Additional Past Medical History / Comment(s): CHRONIC BACK, BILAT GLAUCOMA, SLIGHT HEART BLOCKAGE PER DAUGHTER History of Any Multi-Drug Resistant Organisms: None Reported Past Surgical History: Appendectomy, Hernia Repair, Orthopedic Surgery Additional Past Surgical History / Comment(s): LEFT ARM, SINUS SURGERY, LEFT LEG SX, COLONOSCOPY, Past Anesthesia/Blood Transfusion Reactions: No Reported Reaction Smoking Status: Former smoker - Past Family History Sister(s) Family Medical History: Cancer Additional Family Medical History / Comment(s): OVARIAN Medications and Allergies Home Medications Medication Instructions Recorded Confirmed Type Aspirin 81 mg PO DAILY 04/25/16 06/15/21 History Clopidogrel [Plavix] 75 mg PO DAILY 04/25/16 06/15/21 History Multivitamins, Thera [Multivitamin] 1 tab PO DAILY 04/25/16 06/15/21 History Nitroglycerin Sl Tabs [Nitrostat] 0.4 mg SUBLINGUAL Q5M PRN 04/25/16 06/15/21 History metFORMIN HCL [Glucophage] 500 mg PO BID 04/25/16 06/20/21 History Atorvastatin [Lipitor] 40 mg PO HS 11/02/16 06/20/21 History Cholecalciferol [Vitamin D3 (25 25 mcg PO DAILY 06/15/21 06/15/21 History Mcg = 1000 Iu)] Dorzolamide 2% [Trusopt 2%] 1 drops BOTH EYES BID 06/15/21 06/20/21 History Famotidine 40 mg PO DAILY 06/15/21 06/20/21 History Glucos Sul 2Kcl/MSM/Chond/C/Mn 1 each PO DAILY 06/15/21 06/15/21 History [Glucosamine Chondroitin Cap] Latanoprost/Pf [Latanoprost 0.005% 1 drop BOTH EYES HS 06/15/21 06/20/21 History Eye Drop] Levothyroxine Sodium 125 mcg PO DAILY 06/15/21 06/20/21 History [place]-3 Fatty Acids/Fish Oil [Fish 1 each PO DAILY 06/15/21 06/15/21 History Oil 1,000 mg Softgel] Sertraline [Zoloft] 100 mg PO DAILY 06/15/21 06/20/21 History Timolol 0.5% Ophth Soln [Timoptic 1 drop BOTH EYES BID 06/15/21 06/20/21 History 0.5% Ophth Soln] Allergies Allergy/AdvReac Type Severity Reaction Status Date / Time morphine Allergy Dyspnea Verified 06/20/21 10:43 oxycodone HCl Allergy Dyspnea Verified 06/20/21 10:43 [From OxyContin] Surgical - Exam Vital Signs Temp Pulse Resp BP Pulse Ox 97.3 F L 54 L 18 171/76 96 06/20/21 10:37 06/20/21 10:37 06/20/21 10:37 06/20/21 10:37 06/20/21 10:37 Physical exam: General: Well-developed, well-nourished HEENT: Normocephalic, sclerae nonicteric Abdomen: Nontender, nondistended Extremities: No edema Neuro: Alert and oriented Assessment and Plan (1) Colon cancer screening Narrative/Plan: Will proceed with upper and lower endoscopy Current Visit: Yes Status: Acute Code(s): Z12.11 - ENCOUNTER FOR SCREENING FOR MALIGNANT NEOPLASM OF COLON SNOMED Code(s): 647953050
--- NOTE | 2021-06-20 11:26 | P.PCN ---
Date of Procedure: 06/20/21 Procedure(s) Performed: PREOPERATIVE DIAGNOSIS: Epigastric pain, screening POSTOPERATIVE DIAGNOSIS: Gastritis with small erosions, small hiatal hernia, PROCEDURE: 1. EGD with biopsy 2. Colonoscopy ANESTHESIA: MAC SURGEON: Demetri Avery M.D. SPECIMENS: Antrum ENDOSCOPIC PROCEDURE: The patient was on the endoscopy table in the left decubitus position. The Olympus gastroscope was inserted into the oropharynx and passed under direct visualization to the region of the third portion of the duodenum. From that point the scope was slowly withdrawn inspecting all surfaces carefully. There were no neoplastic inflammatory or polypoid lesions throughout the duodenum. The pylorus was widely patent. The stomach was carefully inspected. There was diffuse gastritis present with multiple small superficial erosions noted. A biopsy of the antrum took place to rule out H. pylori. Retroflexion revealed a small sliding hiatal hernia. The esophagus was then carefully examined. There were no neoplastic inflammatory or polypoid lesions throughout the visualized esophagus. The patient was kept on the endoscopy table in the left decubitus position. The Olympus colonoscope was inserted into the anus and passed under direct visualization to the base of the cecum. The appendiceal orifice was visualized. From that point the scope was slowly withdrawn inspecting all surfaces carefully. There were no neoplastic inflammatory or polypoid lesions throughout the cecum, ascending, transverse, descending, sigmoid and rectum. There was mild scattered diverticulosis noted throughout the colon. The patient's prep was slightly suboptimal. Digital rectal examination was normal. The patient was taken to the recovery room in stable condition per anesthesia guidelines. RECOMMENDATIONS: Resume diet. Await biopsy results. Consider antiacid therapy.
[2021-06-20 11:39] LABS: Glucose,Whole Blood 83 mg/dL (75-99)
[2021-06-20 11:51] VITALS: BP 158/74; PULSE 49; RESP 16
== END 2021-06-20 12:10 | disposition home or self-care (01) ==
LOC: ORWHC2ENDO 09:38
PROVIDERS: ATTEND Surgery
DX: Z12.11 Encounter for screening for malignant neoplasm of colon (principal); K29.70 Gastritis, unspecified, without bleeding; K44.9 Diaphragmatic hernia without obstruction or gangrene; E11.9 Type 2 diabetes mellitus without complications; E78.5 Hyperlipidemia, unspecified; F32.9 Major depressive disorder, single episode, unspecified; I10 Essential (primary) hypertension; I25.10 Atherosclerotic heart disease of native coronary artery without angina pectoris; J44.9 Chronic obstructive pulmonary disease, unspecified; K21.9 Gastro-esophageal reflux disease without esophagitis; Z79.02 Long term (current) use of antithrombotics/antiplatelets; Z79.82 Long term (current) use of aspirin; Z79.84 Long term (current) use of oral hypoglycemic drugs; Z87.891 Personal history of nicotine dependence; Z88.5 Allergy status to narcotic agent; Z90.49 Acquired absence of other specified parts of digestive tract
CPT/HCPCS: 43239; J2704; G0121; 88305

== ENCOUNTER → 2022-01-26 | Outpatient (CLI) | payer MEDICARE ==
[2022-01-26 19:22] LABS: African American GFR (CKD) 67.5 (60.0-200.0); BUN/Creat Ratio 14.05 Ratio (12.00-20.00); Calcium 10.1 mg/dL (8.7-10.3); Carbon Dioxide 26.3 mmol/L (20.0-27.5); Chloride 104 mmol/L (96-109); Chol/HDL Ratio 3.39 Ratio; Glucose 81 mg/dL (70-110); LDL Cholesterol,Calculated 80.9 mg/dL (0.0-131.0); Non-African American GFR(CKD) 58.2 (60.0-200.0); Potassium 4.6 mmol/L (3.5-5.5); Sodium 141 mmol/L (135-145)
== END | disposition home or self-care (01) ==
LOC: LABWHC1 14:04
PROVIDERS: ATTEND Internal Medicine Cardiovascular Disease
DX: I50.21 Acute systolic (congestive) heart failure (principal)
CPT/HCPCS: 36415; 80048; 80061

== ENCOUNTER 2023-02-13 19:57 | Emergency (ER) | payer MEDICARE ==
--- NOTE | 2023-02-13 20:48 | ED ---
General Adult HPI - General Chief complaint: Psychiatric Symptoms Stated complaint: MENTAL HEALTH Time Seen by Provider: 02/13/23 20:20 Source: patient, EMS Mode of arrival: EMS Limitations: no limitations - History of Present Illness Initial comments: Juliane is a pleasant 78-year-old male who is brought to the emergency department today by EMS. The patient reports that he was in his bedroom at home where he lives with his daughter when EMS arrived and stated that there was concerns about his mental health so brought him to the hospital. Patient states that he is not suicidal he is not homicidal. He states that he lives for being a grandfather he has 2 daughters that live in the home next to him. Patient states he has had depression since the loss of his a few years ago when he tries not to focus on that focuses only on being a grandpa. Patient has no guns in the home. He does have a collection of knives. - Related Data Home Medications Medication Instructions Recorded Confirmed Clopidogrel [Plavix] 75 mg PO DAILY 04/25/16 02/13/23 Multivitamins, Thera [Multivitamin] 1 tab PO DAILY 04/25/16 02/13/23 Nitroglycerin Sl Tabs [Nitrostat] 0.4 mg SUBLINGUAL Q5M PRN 04/25/16 02/13/23 metFORMIN HCL [Glucophage] 500 mg PO BID 04/25/16 02/13/23 Atorvastatin [Lipitor] 40 mg PO DAILY 11/02/16 02/13/23 Famotidine 40 mg PO DAILY 06/15/21 02/13/23 Levothyroxine Sodium 125 mcg PO HS 06/15/21 02/13/23 [place]-3 Fatty Acids/Fish Oil [Fish 1 cap PO DAILY 06/15/21 02/13/23 Oil 1,000 mg Softgel] Sertraline [Zoloft] 100 mg PO DAILY 06/15/21 02/13/23 Furosemide [Lasix] 20 mg PO Q48H 02/13/23 02/13/23 Magnesium 250 mg PO DAILY 02/13/23 02/13/23 Metoprolol Succinate (ER) [Toprol 25 mg PO DAILY 02/13/23 02/13/23 Xl] Potassium Chloride 10 meq PO Q48H 02/13/23 02/13/23 ramipriL 10 mg PO DAILY 02/13/23 02/13/23 traMADol HCL/ACETAMINOPHEN 1 tab PO Q8H PRN 02/13/23 02/13/23 [Ultracet 37.5-325] Allergies Allergy/AdvReac Type Severity Reaction Status Date / Time morphine Allergy Dyspnea Verified 02/13/23 22:04 oxycodone HCl Allergy Dyspnea Verified 02/13/23 22:04 [From OxyContin] Review of Systems ROS Statement: Those systems with pertinent positive or pertinent negative responses have been documented in the HPI. ROS Other: All systems not noted in ROS Statement are negative. Past Medical History Past Medical History: Coronary Artery Disease (CAD), COPD, Diabetes Mellitus, GERD/Reflux, Hyperlipidemia, Hypertension, Thyroid Disorder Additional Past Medical History / Comment(s): CHRONIC BACK History of Any Multi-Drug Resistant Organisms: None Reported Past Surgical History: Appendectomy, Hernia Repair, Orthopedic Surgery Additional Past Surgical History / Comment(s): LEFT ARM, SINUS SURGERY, LEFT LEG Past Psychological History: No Psychological Hx Reported Past Alcohol Use History: None Reported Past Drug Use History: None Reported General Exam - General Exam Comments Initial Comments: Physical Exam GENERAL: Patient is well-developed and well-nourished. Patient is nontoxic and well-hydrated and is in no distress. HENT: Normocephalic, Atraumatic. EYES: PERRL, EOMI PULMONARY: Unlabored respirations. CARDIOVASCULAR: RRR Warm and well perfused extremities ABDOMEN: Non-distended SKIN: No rashes or bruising : Deferred NEUROLOGIC: Alert and oriented Normal speech Normal gait MUSCULOSKELETAL: Moving all extremities with no apparent injury PSYCHIATRIC: Feelings of hopelessness, no desire to live Limitations: no limitations Course Vital Signs 02/13/23 20:00 Temperature 98.0 F Pulse Rate 80 Respiratory 20 Rate Blood Pressure 151/93 O2 Sat by Pulse 96 Oximetry Medical Decision Making - Medical Decision Making The patient was seen and evaluated, history is obtained from the patient. The patient is awake alert oriented states that he was brought here for depression but that he is not depressed any more than baseline he has not suicidal or homicidal, the patient is not delusional Considering his depression he was willing to speak with the psychiatric services nurse. Upon speaking with that nurse he did admit that he doesn't have any desire to live he would like to he would like her to and his life. Patient is an elderly male with feelings of hopelessness this is very high risk for completion of suicide therefore warrants admission for psychiatric evaluation. Petition was completed by patient's daughter psychiatriac Cert was completed by me. Was pt. sent in by a medical professional or institution ([facility], [employer] OPERATOR, urgent care, hospital, or correction...) When possible be specific @ -No Did you speak to anyone other than the patient for history (EMS, parent, family, police, friend...)? What history was obtained from this source @ -No Did you review nursing and triage notes (agree or disagree)? Why? @ -I reviewed and agree with nursing and triage notes Were old charts reviewed (outside hosp., previous admission, EMS record, old EKG, old radiological studies, urgent care reports/EKG's, correction records)? Report findings @ -No old charts were reviewed Differential Diagnosis (chest pain, altered mental status, abdominal pain women, abdominal pain men, vaginal bleeding, weakness, fever, dyspnea, syncope, headache, dizziness, GI bleed, back pain, seizure, CVA, palpatations, mental health, musculoskeletal)? @ -not applicable EKG interpreted by me (3pts min.). @ -As above X-rays interpreted by me (1pt min.). @ -None done CT interpreted by me (1pt min.). @ -None done U/S interpreted by me (1pt. min.). @ -None done What testing was considered but not performed or refused? (CT, X-rays, U/S, labs)? Why? @ -None What meds were considered but not given or refused? Why? @ -None Did you discuss the management of the patient with other professionals (professionals i.e. YUMI[facility] Delcid, W[employer] W[employer] PLANT OPERATOR, lab, RT, psych nurse, social work program coordinator, dairy equipment repairer, teacher, commissioned fire officer, test case developer)? Give summary @ -Care was discussed with EPS nurse Was smoking cessation discussed for >3mins.? @ -No Was critical care preformed (if so, how long)? @ -No Were there social determinants of health that impacted care today? How? (Homelessness, low income, unemployed, alcoholism, drug addiction, transportation, low edu. Level, literacy, decrease access to med. care, retirement, rehab)? @ -No Was there de-escalation of care discussed even if they declined (Discuss DNR or withdrawal of care, Hospice)? DNR status @ -No What co-morbidities impacted this encounter? (DM, HTN, Smoking, COPD, CAD, Cancer, CVA, ARF, Chemo, Hep., AIDS, mental health diagnosis, sleep apnea, morbid obesity)? @ -None Was patient admitted / discharged? Hospital course, mention meds given and route, prescriptions, significant lab abnormalities, going to OR and other pertinent info. @ -Recommended to transfer for psychiatric care Undiagnosed new problem with uncertain prognosis? @ -No Drug Therapy requiring intensive monitoring for toxicity (Heparin, Nitro, Insulin, Cardizem)? @ -No Were any procedures done? @ -No Diagnosis/symptom? @ -Major depression, suicidal Acute, or Chronic, or Acute on Chronic? @ -Acute on chronic Uncomplicated (without systemic symptoms) or Complicated (systemic symptoms)? @ -default Side effects of treatment? @ -No Exacerbation, Progression, or Severe Exacerbation? @ -No Poses a threat to life or bodily function? How? (Chest pain, USA, MT, pneumonia, PE, COPD, DKA, ARF, appy, cholecystitis, CVA, Diverticulitis, Homicidal, Suicidal, threat to staff... and all critical care pts) @ -Yes Disposition Clinical Impression: Major depression, Suicidal ideations Disposition: TRANSFER TO PSYCH HOSP/UNIT Condition: Serious Referrals: None,Stated [REFERRING] - 1-2 days
[2023-02-14 00:11] LABS: Basophils % (A) 1 %; Eosinophils # (A) 0.2 k/uL (0-0.7); Eosinophils % (A) 3 %; HCT 39.2 % (39.0-53.0); HGB 13.1 gm/dL (13.0-17.5); Lymphocytes # (A) 1.9 k/uL (1.0-4.8); Lymphocytes % (A) 26 %; MCH 32.5 pg (25.0-35.0); MCHC 33.5 g/dL (31.0-37.0); Mean Platelet Volume 8.5; Monocytes # (A) 0.4 k/uL (0-1.0); Monocytes % (A) 6 %; Neutrophils # (A) 4.7 k/uL (1.3-7.7); Neutrophils % (A) 63 %; Platelet Count 171 k/uL (150-450); RBC 4.04 m/uL (4.30-5.90); RDW 13.5 % (11.5-15.5); WBC 7.4 k/uL (3.8-10.6)
[2023-02-14 00:29] LABS: Acetaminophen <10.0 ug/mL; Alcohol <10 mg/dL; Salicylate <1.0 mg/dL
[2023-02-14 15:19] LABS: Appearance,Urine Clear (Clear); Bilirubin,Urine Negative (Negative); Blood,Urine Small (Negative); Color,Urine Yellow; Glucose,Urine (UA) Negative (Negative); Ketones,Urine Negative (Negative); Leukocyte Esterase,Urine Large (Negative); Mucus,Urine Rare /hpf; Nitrite,Urine Negative (Negative); PH, Urine 5.5 (5.0-8.0); Protein,Urine Negative (Negative); RBC,Urine 18 /hpf (0-5); Specific Gravity,Urine 1.015 (1.001-1.035); Squamous Epithelial Cell,Urine <1 /hpf (0-4); Urobilinogen,Urine <2.0 mg/dL (<2.0); WBC,Urine 35 /hpf (0-5)
[2023-02-14 15:21] LABS: Amphetamine Screen,Urine Not Detected (NotDetected); Barbiturate Screen,Urine Not Detected (NotDetected); Benzodiazepines Screen,Urine Not Detected (NotDetected); Cocaine Screen,Urine Not Detected (NotDetected); Methadone Screen, Urine Not Detected (NotDetected); Opiate Screen,Urine Not Detected (NotDetected); Oxycodone Screen, Urine Not Detected (NotDetected); Phencyclidine Screen,Urine Not Detected (NotDetected); Tricyclic Antidepressant,Urine Not Detected (NotDetected); Urn Cannabinoid Scrn Not Detected (NotDetected)
[2023-02-15] MEDS ORDERED: traMADol-ACETAMINOP 37.5-325MG 1 EACH TAB PO PRN (18:49)
[2023-02-15] MEDS: metFORMIN 500 MG TAB PO SCH (20:28)
[2023-02-15] MEDS ORDERED: LEVOTHYROXINE 125 MCG TAB PO SCH (21:00)
[2023-02-16] MEDS ORDERED: POTASSIUM CHLORIDE ER 10 MEQ TAB.ER.PRT PO SCH (09:00)
[2023-02-16] MEDS ORDERED: MAGNESIUM OXIDE 400 MG TAB PO SCH (09:00)
[2023-02-16] MEDS ORDERED: METOPROLOL SUCCINATE (ER) 25 MG TAB.ER.24H PO SCH (09:00)
[2023-02-16] MEDS ORDERED: FAMOTIDINE 20 MG TAB PO SCH (09:00)
[2023-02-16] MEDS ORDERED: lisinopriL 20 MG TAB PO SCH (09:00)
[2023-02-16] MEDS ORDERED: SERTRALINE 100 MG TAB PO SCH (09:00)
[2023-02-16] MEDS ORDERED: FUROSEMIDE 20 MG TAB PO SCH (09:00)
[2023-02-16] MEDS ORDERED: ATORVASTATIN 40 MG TAB PO SCH (09:00)
[2023-02-16] MEDS ORDERED: CLOPIDOGREL 75 MG TAB PO SCH (09:00)
[2023-02-16] MEDS ORDERED: traMADol-ACETAMINOP 37.5-325MG 1 EACH TAB PO PRN (09:04)
[2023-02-16] MEDS: ATORVASTATIN 40 MG TAB PO SCH (09:54)
[2023-02-16] MEDS: CLOPIDOGREL 75 MG TAB PO SCH (09:54)
[2023-02-16] MEDS: POTASSIUM CHLORIDE ER 10 MEQ TAB.ER.PRT PO SCH (09:54)
[2023-02-16] MEDS: SERTRALINE 100 MG TAB PO SCH (09:54)
[2023-02-16] MEDS: metFORMIN 500 MG TAB PO SCH ×3 (09:54→20:20)
[2023-02-16] MEDS: lisinopriL 20 MG TAB PO SCH (09:55)
[2023-02-16] MEDS: FAMOTIDINE 20 MG TAB PO SCH (09:55)
[2023-02-16] MEDS: MAGNESIUM OXIDE 400 MG TAB PO SCH (09:55)
[2023-02-16] MEDS: FUROSEMIDE 20 MG TAB PO SCH (09:55)
[2023-02-16] MEDS: METOPROLOL SUCCINATE (ER) 25 MG TAB.ER.24H PO SCH (09:58)
[2023-02-16] MEDS: LEVOTHYROXINE 125 MCG TAB PO SCH (20:15)
[2023-02-17] MEDS: lisinopriL 20 MG TAB PO SCH (10:02)
[2023-02-17] MEDS: METOPROLOL SUCCINATE (ER) 25 MG TAB.ER.24H PO SCH (10:02)
[2023-02-17] MEDS: FAMOTIDINE 20 MG TAB PO SCH (10:03)
[2023-02-17] MEDS: CLOPIDOGREL 75 MG TAB PO SCH (10:03)
[2023-02-17] MEDS: metFORMIN 500 MG TAB PO SCH ×2 (10:03→23:26)
[2023-02-17] MEDS: SERTRALINE 100 MG TAB PO SCH (10:03)
[2023-02-17] MEDS: ATORVASTATIN 40 MG TAB PO SCH (10:03)
[2023-02-17] MEDS: MAGNESIUM OXIDE 400 MG TAB PO SCH (10:04)
[2023-02-17] MEDS: LEVOTHYROXINE 125 MCG TAB PO SCH (23:27)
[2023-02-18] MEDS: CLOPIDOGREL 75 MG TAB PO SCH (10:16)
[2023-02-18] MEDS: FAMOTIDINE 20 MG TAB PO SCH (10:17)
[2023-02-18] MEDS: POTASSIUM CHLORIDE ER 10 MEQ TAB.ER.PRT PO SCH (10:17)
[2023-02-18] MEDS: FUROSEMIDE 20 MG TAB PO SCH (10:17)
[2023-02-18] MEDS: lisinopriL 20 MG TAB PO SCH (10:17)
[2023-02-18] MEDS: metFORMIN 500 MG TAB PO SCH ×2 (10:17→20:12)
[2023-02-18] MEDS: METOPROLOL SUCCINATE (ER) 25 MG TAB.ER.24H PO SCH (10:17)
[2023-02-18] MEDS: SERTRALINE 100 MG TAB PO SCH (10:17)
[2023-02-18] MEDS: ATORVASTATIN 40 MG TAB PO SCH (10:17)
[2023-02-18] MEDS: MAGNESIUM OXIDE 400 MG TAB PO SCH (10:17)
[2023-02-18] MEDS: LEVOTHYROXINE 125 MCG TAB PO SCH (20:12)
[2023-02-19] MEDS: ATORVASTATIN 40 MG TAB PO SCH (08:17)
[2023-02-19] MEDS: metFORMIN 500 MG TAB PO SCH ×2 (08:18→22:56)
[2023-02-19] MEDS: MAGNESIUM OXIDE 400 MG TAB PO SCH (08:18)
[2023-02-19] MEDS: CLOPIDOGREL 75 MG TAB PO SCH (08:18)
[2023-02-19] MEDS: FUROSEMIDE 20 MG TAB PO SCH (08:18)
[2023-02-19] MEDS: lisinopriL 20 MG TAB PO SCH (08:18)
[2023-02-19] MEDS: FAMOTIDINE 20 MG TAB PO SCH (08:18)
[2023-02-19] MEDS: METOPROLOL SUCCINATE (ER) 25 MG TAB.ER.24H PO SCH (08:19)
[2023-02-19] MEDS: SERTRALINE 100 MG TAB PO SCH (08:20)
[2023-02-19 10:24] LABS: Glucose,Whole Blood 101 mg/dL (70-110)
[2023-02-19 19:01] LABS: ALT 23 U/L (4-49); AST 40 U/L (17-59); African American GFR (CKD) 48 (>60 ml/min/1.73 sqM); Albumin 4.8 g/dL (3.5-5.0); Alkaline Phosphatase 113 U/L (38-126); Anion Gap 11 mmol/L; Blood Urea Nitrogen 30 mg/dL (9-20); Calcium 10.5 mg/dL (8.4-10.2); Carbon Dioxide 30 mmol/L (22-30); Chloride 101 mmol/L (98-107); Glucose 86 mg/dL (74-99); Non-African American GFR(CKD) 41 (>60 ml/min/1.73 sqM); Potassium 4.5 mmol/L (3.5-5.1); Sodium 142 mmol/L (137-145); Total Bilirubin 0.6 mg/dL (0.2-1.3); Total Protein 8.2 g/dL (6.3-8.2)
[2023-02-19 20:23] VITALS: BP 161/77; PULSE 62; RESP 16; TEMP 98.9
[2023-02-19] MEDS: LEVOTHYROXINE 125 MCG TAB PO SCH (20:47)
== END 2023-02-19 23:23 ==
LOC: EC 19:57
DX: F32.9 Major depressive disorder, single episode, unspecified (principal); R45.851 Suicidal ideations; E11.9 Type 2 diabetes mellitus without complications; I10 Essential (primary) hypertension; E78.5 Hyperlipidemia, unspecified; J44.9 Chronic obstructive pulmonary disease, unspecified; I25.10 Atherosclerotic heart disease of native coronary artery without angina pectoris; E07.9 Disorder of thyroid, unspecified; Z79.890 Hormone replacement therapy; Z79.84 Long term (current) use of oral hypoglycemic drugs; Z79.899 Other long term (current) drug therapy; Z88.5 Allergy status to narcotic agent
CPT/HCPCS: 99285 ×2; 82075; 36415 ×2; 93005; 80053; 84443; 85025; 81001; 80306; 80143; 87636; 80179; G0480; 80320

== ENCOUNTER 2023-06-19 21:03 | Observation (INO) | payer MEDICARE ==
[2023-06-19] MEDS ORDERED: SODIUM CHLORIDE 0.9% 1,000 ML IV STA (21:35)
--- NOTE | 2023-06-19 21:43 | ED ---
General Adult HPI - General Chief complaint: Dizziness Stated complaint: SOB, Weakness Time Seen by Provider: 06/19/23 21:13 Source: patient, EMS Mode of arrival: EMS - History of Present Illness Initial comments: Dictation was produced using [employer] dictation software. please excuse any grammatical, word or spelling errors. Chief Complaint: 78-year-old male presents to the emergency department for acute onset dizziness and weakness History of Present Illness: Is 78-year-old male presents emergency department for acute onset dizziness and weakness. He felt fine this morning. We'll sedate he has felt that baseline. Went to the bathroom and tried to get out when he felt so weak called his daughter who then called EMS. Patient denies any medical problems however he does report having history of COPD, coronary artery disease and pacemaker. Patient denies chest pain. According to EMS report initial arrival patient appeared to be dyspneic, clammy to the touch and diaphoretic. The ROS documented in this emergency department record has been reviewed and confirmed by me. Those systems with pertinent positive or negative responses have been documented in the HPI. All other systems are other negative and/or noncontributory. - Related Data Home Medications Medication Instructions Recorded Confirmed Clopidogrel [Plavix] 75 mg PO DAILY 04/25/16 02/13/23 Multivitamins, Thera [Multivitamin] 1 tab PO DAILY 04/25/16 02/13/23 Nitroglycerin Sl Tabs [Nitrostat] 0.4 mg SUBLINGUAL Q5M PRN 04/25/16 02/13/23 metFORMIN HCL [Glucophage] 500 mg PO BID 04/25/16 02/13/23 Atorvastatin [Lipitor] 40 mg PO DAILY 11/02/16 02/13/23 Famotidine 40 mg PO DAILY 06/15/21 02/13/23 Levothyroxine Sodium 125 mcg PO HS 06/15/21 02/13/23 [place]-3 Fatty Acids/Fish Oil [Fish 1 cap PO DAILY 06/15/21 02/13/23 Oil 1,000 mg Softgel] Sertraline [Zoloft] 100 mg PO DAILY 06/15/21 02/13/23 Furosemide [Lasix] 20 mg PO Q48H 02/13/23 02/13/23 Magnesium 250 mg PO DAILY 02/13/23 02/13/23 Metoprolol Succinate (ER) [Toprol 25 mg PO DAILY 02/13/23 02/13/23 Xl] Potassium Chloride 10 meq PO Q48H 02/13/23 02/13/23 ramipriL 10 mg PO DAILY 02/13/23 02/13/23 traMADol HCL/ACETAMINOPHEN 1 tab PO Q8H PRN 02/13/23 02/13/23 [Ultracet 37.5-325] Allergies Allergy/AdvReac Type Severity Reaction Status Date / Time morphine Allergy Dyspnea Verified 06/19/23 21:32 oxycodone HCl Allergy Dyspnea Verified 06/19/23 21:32 [From OxyContin] Review of Systems ROS Statement: Those systems with pertinent positive or pertinent negative responses have been documented in the HPI. ROS Other: All systems not noted in ROS Statement are negative. Past Medical History Past Medical History: Coronary Artery Disease (CAD), COPD, Diabetes Mellitus, GERD/Reflux, Hyperlipidemia, Hypertension, Thyroid Disorder Additional Past Medical History / Comment(s): CHRONIC BACK History of Any Multi-Drug Resistant Organisms: None Reported Past Surgical History: Appendectomy, Hernia Repair, Orthopedic Surgery Additional Past Surgical History / Comment(s): LEFT ARM, SINUS SURGERY, LEFT LEG Past Psychological History: No Psychological Hx Reported Smoking Status: Never smoker Past Alcohol Use History: None Reported Past Drug Use History: None Reported General Exam - General Exam Comments Initial Comments: PHYSICAL EXAM: General Impression: Alert and oriented x3, not in acute distress, pallor HEENT: Normocephalic atraumatic, extra-ocular movements intact, pupils equal and reactive to light bilaterally, mucous membranes moist. Cardiovascular: Heart regular rate and rhythm Chest: Able to complete full sentences, no retractions, no tachypnea Abdomen: abdomen soft, non-tender, non-distended, no organomegaly Musculoskeletal: Pulses present and equal in all extremities, no peripheral e suzie Motor: no focal deficits noted Neurological: CN II-XII grossly intact, no focal motor or sensory deficits noted Skin: Intact with no visualized rashes Psych: Normal affect and mood Course Vital Signs 06/19/23 06/19/23 06/19/23 21:26 21:30 21:44 Temperature 97.6 F Pulse Rate 67 60 Respiratory 16 15 Rate Blood Pressure 85/48 89/56 89/58 O2 Sat by Pulse 97 100 Oximetry 06/19/23 06/19/23 06/19/23 22:00 22:15 23:00 Temperature Pulse Rate 60 60 60 Respiratory 16 16 16 Rate Blood Pressure 104/56 108/55 106/57 O2 Sat by Pulse 100 100 100 Oximetry 06/20/23 00:00 Temperature Pulse Rate 61 Respiratory 16 Rate Blood Pressure 100/60 O2 Sat by Pulse 98 Oximetry - Reevaluation(s) Reevaluation #1: 06/19/23 21:42 Patient seen and evaluated in room #11. He did appear slightly pale however he is alert and oriented and in no acute distress. His blood pressure was rather low 85/48. My EKG interpretation: Ventricular rate 67, electronic atrial paced and ventricular paced rhythm. AK 169, QRS 155, QTc 464. No AK prolongation, no QTC prolongation, no ST or T-wave changes noted. Overall, this EKG is unremarkable Medical Decision Making - Medical Decision Making Was pt. sent in by a medical professional or institution (, PA, GLUE MIXER, urgent care, hospital, or group home...) When possible be specific @ -No Did you speak to anyone other than the patient for history (EMS, parent, family, police, friend...)? What history was obtained from this source @ -No Did you review nursing and triage notes (agree or disagree)? Why? @ -I reviewed and agree with nursing and triage notes Were old charts reviewed (outside hosp., previous admission, EMS record, old EKG, old radiological studies, urgent care reports/EKG's, group home records)? Report findings @ -No old charts were reviewed Differential Diagnosis (chest pain, altered mental status, abdominal pain women, abdominal pain men, vaginal bleeding, musculoskeletal, weakness, fever, dyspnea, syncope, headache, dizziness, GI bleed, back pain, seizure, CVA, palpatations, mental health)? @ -Differential Weakness: Hypoglycemia, shock, sepsis, hyponatremia, anemia, infection, DC, ETOH, adverse medicine reaction, overdose, stroke, this is not meant to be an all-inclusive list. EKG interpreted by me (3pts min.). @ -See above X-rays interpreted by me (1pt min.). @ -Chest x-ray shows patchy infiltrate at right base CT interpreted by me (1pt min.). @ -None done U/S interpreted by me (1pt. min.). @ -None done What testing was considered but not performed or refused? (CT, X-rays, U/S, labs)? Why? @ -None What meds were considered but not given or refused? Why? @ -None Did you discuss the management of the patient with other professionals (professionals i.e. , PA, GLUE MIXER, lab, RT, psych nurse, social media specialist, portfolio management marketing, teacher, officer lieutenant, director of casework department)? Give summary @ -Case discussed with hospitalist for admission Was smoking cessation discussed for >3mins.? @ -No Was critical care preformed (if so, how long)? @ -No Were there social determinants of health that impacted care today? How? (Homelessness, low income, unemployed, alcoholism, drug addiction, transportation, low edu. Level, literacy, decrease access to med. care, fpc, rehab)? @ -No Was there de-escalation of care discussed even if they declined (Discuss DNR or withdrawal of care, Hospice)? DNR status @ -No What co-morbidities impacted this encounter? (DM, HTN, Smoking, COPD, CAD, Cancer, CVA, ARF, Chemo, Hep., AIDS, mental health diagnosis, sleep apnea, morbid obesity)? @ -None Was patient admitted / discharged? Hospital course, mention meds given and route, prescriptions, significant lab abnormalities, going to OR and other pertinent info. @ -78-year-old male presents emergency department for dizziness and presyncopal symptoms. Initial vital signs shows hypertension of 8548. Rest vital signs within acceptable limits. Patient given 1 L normal saline bolus. Labs suggest dehydration cranial 2.06 and a BUN of 43. Urinalysis shows findings that would suggest urinary tract infection however patient denies any urinary symptoms. Patient's blood pressure improved after IV fluids. Patient will be admitted observation for medical monitor. Undiagnosed new problem with uncertain prognosis? @ -No Drug Therapy requiring intensive monitoring for toxicity (Heparin, Nitro, Insulin, Cardizem)? @ -No Were any procedures done? @ -No Diagnosis/symptom? Acute, or Chronic, or Acute on Chronic? Uncomplicated ( without systemic symptoms) or Complicated (systemic symptoms)? @ -Dehydration, located by presyncope Side effects of treatment? @ -No Exacerbation, Progression, or Severe Exacerbation? @ -No Poses a threat to life or bodily function? How? (Chest pain, USA, DC, pneumonia, PE, COPD, DKA, ARF, appy, cholecystitis, CVA, Diverticulitis, Homicidal, Suicidal, threat to staff... and all critical care pts) @ -yes - Lab Data Result diagrams: 06/19/23 21:38 06/19/23 21:38 Lab Results 06/19/23 06/19/23 06/19/23 Range/Units 21:38 21:38 21:38 WBC 7.3 (3.8-10.6) k/uL RBC 4.55 (4.30-5.90) m/uL Hgb 14.6 (13.0-17.5) gm/dL Hct 44.0 (39.0-53.0) % MCV 96.6 (80.0-100.0) fL MCH 32.2 (25.0-35.0) pg MCHC 33.3 (31.0-37.0) g/dL RDW 13.2 (11.5-15.5) % Plt Count 133 L (150-450) k/uL MPV 8.9 Neutrophils % 68 % Lymphocytes % 22 % Monocytes % 4 % Eosinophils % 4 % Basophils % 1 % Neutrophils # 5.0 (1.3-7.7) k/uL Lymphocytes # 1.6 (1.0-4.8) k/uL Monocytes # 0.3 (0-1.0) k/uL Eosinophils # 0.3 (0-0.7) k/uL Basophils # 0.0 (0-0.2) k/uL PT 11.1 (10.0-12.5) sec INR 1.0 (<1.2) APTT 19.8 L (22.0-30.0) sec Sodium 141 (137-145) mmol/L Potassium 4.7 (3.5-5.1) mmol/L Chloride 105 (98-107) mmol/L Carbon Dioxide 22 (22-30) mmol/L Anion Gap 14 mmol/L BUN 43 H (9-20) mg/dL Creatinine 2.06 H (0.66-1.25) mg/dL Est GFR (CKD-EPI)AfAm 35 (>60 ml/min/1.73 sqM) Est GFR (CKD-EPI)NonAf 31 (>60 ml/min/1.73 sqM) Glucose 118 H (74-99) mg/dL Plasma Lactic Acid [place] (0.7-2.0) mmol/L Calcium 10.2 (8.4-10.2) mg/dL Ionized Calcium Jennifer Cancelled Magnesium 1.9 (1.6-2.3) mg/dL Total Bilirubin 0.9 (0.2-1.3) mg/dL AST 45 (17-59) U/L ALT 25 (4-49) U/L Alkaline Phosphatase 73 (38-126) U/L Troponin I (0.000-0.034) ng/mL Total Protein 7.3 (6.3-8.2) g/dL Albumin 4.4 (3.5-5.0) g/dL Urine Color Urine Appearance (Clear) Urine pH (5.0-8.0) Ur Specific [place] (1.001-1.035) Urine Protein (Negative) Urine Glucose (UA) (Negative) Urine Ketones (Negative) Urine Blood (Negative) Urine Nitrite (Negative) Urine Bilirubin (Negative) Urine Urobilinogen (<2.0) mg/dL Ur Leukocyte Esterase (Negative) Urine RBC (0-5) /hpf Urine WBC (0-5) /hpf Hyaline Casts (0-2) /lpf Urine Mucus (None) /hpf 06/19/23 06/19/23 06/19/23 Range/Units 21:38 21:38 23:15 WBC (3.8-10.6) k/uL RBC (4.30-5.90) m/uL Hgb (13.0-17.5) gm/dL Hct (39.0-53.0) % MCV (80.0-100.0) fL MCH (25.0-35.0) pg MCHC (31.0-37.0) g/dL RDW (11.5-15.5) % Plt Count (150-450) k/uL MPV Neutrophils % % Lymphocytes % % Monocytes % % Eosinophils % % Basophils % % Neutrophils # (1.3-7.7) k/uL Lymphocytes # (1.0-4.8) k/uL Monocytes # (0-1.0) k/uL Eosinophils # (0-0.7) k/uL Basophils # (0-0.2) k/uL PT (10.0-12.5) sec INR (<1.2) APTT (22.0-30.0) sec Sodium (137-145) mmol/L Potassium (3.5-5.1) mmol/L Chloride (98-107) mmol/L Carbon Dioxide (22-30) mmol/L Anion Gap mmol/L BUN (9-20) mg/dL Creatinine (0.66-1.25) mg/dL Est GFR (CKD-EPI)AfAm (>60 ml/min/1.73 sqM) Est GFR (CKD-EPI)NonAf (>60 ml/min/1.73 sqM) Glucose (74-99) mg/dL Plasma Lactic Acid [place] 1.6 (0.7-2.0) mmol/L Calcium (8.4-10.2) mg/dL Ionized Calcium Jennifer 5.2 Magnesium (1.6-2.3) mg/dL Total Bilirubin (0.2-1.3) mg/dL AST (17-59) U/L ALT (4-49) U/L Alkaline Phosphatase (38-126) U/L Troponin I <0.012 (0.000-0.034) ng/mL Total Protein (6.3-8.2) g/dL Albumin (3.5-5.0) g/dL Urine Color Urine Appearance (Clear) Urine pH (5.0-8.0) Ur Specific [place] (1.001-1.035) Urine Protein (Negative) Urine Glucose (UA) (Negative) Urine Ketones (Negative) Urine Blood (Negative) Urine Nitrite (Negative) Urine Bilirubin (Negative) Urine Urobilinogen (<2.0) mg/dL Ur Leukocyte Esterase (Negative) Urine RBC (0-5) /hpf Urine WBC (0-5) /hpf Hyaline Casts (0-2) /lpf Urine Mucus (None) /hpf 06/19/23 Range/Units 23:59 WBC (3.8-10.6) k/uL RBC (4.30-5.90) m/uL Hgb (13.0-17.5) gm/dL Hct (39.0-53.0) % MCV (80.0-100.0) fL MCH (25.0-35.0) pg MCHC (31.0-37.0) g/dL RDW (11.5-15.5) % Plt Count (150-450) k/uL MPV Neutrophils % % Lymphocytes % % Monocytes % % Eosinophils % % Basophils % % Neutrophils # (1.3-7.7) k/uL Lymphocytes # (1.0-4.8) k/uL Monocytes # (0-1.0) k/uL Eosinophils # (0-0.7) k/uL Basophils # (0-0.2) k/uL PT (10.0-12.5) sec INR (<1.2) APTT (22.0-30.0) sec Sodium (137-145) mmol/L Potassium (3.5-5.1) mmol/L Chloride (98-107) mmol/L Carbon Dioxide (22-30) mmol/L Anion Gap mmol/L BUN (9-20) mg/dL Creatinine (0.66-1.25) mg/dL Est GFR (CKD-EPI)AfAm (>60 ml/min/1.73 sqM) Est GFR (CKD-EPI)NonAf (>60 ml/min/1.73 sqM) Glucose (74-99) mg/dL Plasma Lactic Acid [place] (0.7-2.0) mmol/L Calcium (8.4-10.2) mg/dL Ionized Calcium Jennifer Magnesium (1.6-2.3) mg/dL Total Bilirubin (0.2-1.3) mg/dL AST (17-59) U/L ALT (4-49) U/L Alkaline Phosphatase (38-126) U/L Troponin I (0.000-0.034) ng/mL Total Protein (6.3-8.2) g/dL Albumin (3.5-5.0) g/dL Urine Color Light Yellow Urine Appearance Clear (Clear) Urine pH 5.5 (5.0-8.0) Ur Specific [place] 1.013 (1.001-1.035) Urine Protein Negative (Negative) Urine Glucose (UA) Negative (Negative) Urine Ketones Negative (Negative) Urine Blood Small H (Negative) Urine Nitrite Negative (Negative) Urine Bilirubin Negative (Negative) Urine Urobilinogen <2.0 (<2.0) mg/dL Ur Leukocyte Esterase Moderate H (Negative) Urine RBC 21 H (0-5) /hpf Urine WBC 32 H (0-5) /hpf Hyaline Casts 7 H (0-2) /lpf Urine Mucus Rare H (None) /hpf Disposition Clinical Impression: Dehydration Disposition: ADMITTED IP TO THIS HOSP Condition: Fair Referrals: Jarrett Solis DO [Primary Care Provider] - 1-2 days Decision Time: 01:38
[2023-06-19 21:53] LABS: Basophils % (A) 1 %; Eosinophils # (A) 0.3 k/uL (0-0.7); Eosinophils % (A) 4 %; HGB 14.6 gm/dL (13.0-17.5); Lymphocytes # (A) 1.6 k/uL (1.0-4.8); Lymphocytes % (A) 22 %; MCH 32.2 pg (25.0-35.0); MCHC 33.3 g/dL (31.0-37.0); MCV 96.6 fL (80.0-100.0); Mean Platelet Volume 8.9; Monocytes # (A) 0.3 k/uL (0-1.0); Monocytes % (A) 4 %; Neutrophils % (A) 68 %; Platelet Count 133 k/uL (150-450); RBC 4.55 m/uL (4.30-5.90); RDW 13.2 % (11.5-15.5); WBC 7.3 k/uL (3.8-10.6)
--- NOTE | 2023-06-19 21:55 | XR ---
EXAMINATION TYPE: XR chest 1V portable DATE OF EXAM: 06/19/2023 COMPARISON: 05/11/2016 INDICATION: Presyncope TECHNIQUE: Single frontal view of the chest is obtained. FINDINGS: The heart size is normal. Pacemaker overlies the left chest. The pulmonary vasculature is normal. Some patchy infiltrate appears to be in the left perihilar region. Some right lower lobe infiltrate m ay be present. Findings are nonspecific. Correlate for pneumonia. Consider atypical pneumonia. IMPRESSION: 1. Some patchy infiltrate may be through the left midlung and at the right base. This is nonspecific. Correlate for atypical pneumonia. Follow-up can be performed as clinically indicated
[2023-06-19 22:01] LABS: Prothrombin Time 11.1 sec (10.0-12.5)
[2023-06-19 22:29] LABS: ALT 25 U/L (4-49); AST 45 U/L (17-59); African American GFR (CKD) 35 (>60 ml/min/1.73 sqM); Albumin 4.4 g/dL (3.5-5.0); Alkaline Phosphatase 73 U/L (38-126); Anion Gap 14 mmol/L; Blood Urea Nitrogen 43 mg/dL (9-20); Calcium 10.2 mg/dL (8.4-10.2); Carbon Dioxide 22 mmol/L (22-30); Chloride 105 mmol/L (98-107); Glucose 118 mg/dL (74-99); Magnesium 1.9 mg/dL (1.6-2.3); Non-African American GFR(CKD) 31 (>60 ml/min/1.73 sqM); Potassium 4.7 mmol/L (3.5-5.1); Sodium 141 mmol/L (137-145); Total Bilirubin 0.9 mg/dL (0.2-1.3); Total Protein 7.3 g/dL (6.3-8.2)
[2023-06-19 23:16] LABS: Partial Thromboplastin Time 19.8 sec (22.0-30.0)
[2023-06-20 01:03] LABS: Appearance,Urine Clear (Clear); Bilirubin,Urine Negative (Negative); Blood,Urine Small (Negative); Color,Urine Light Yellow; Glucose,Urine (UA) Negative (Negative); Hyaline Casts,Urine 7 /lpf (0-2); Ketones,Urine Negative (Negative); Leukocyte Esterase,Urine Moderate (Negative); Mucus,Urine Rare /hpf; Nitrite,Urine Negative (Negative); PH, Urine 5.5 (5.0-8.0); Protein,Urine Negative (Negative); RBC,Urine 21 /hpf (0-5); Specific Gravity,Urine 1.013 (1.001-1.035); Urobilinogen,Urine <2.0 mg/dL (<2.0); WBC,Urine 32 /hpf (0-5)
[2023-06-20] MEDS ORDERED: NALOXONE 0.4 MG/ML 1 ML VIAL IV PRN (01:27)
[2023-06-20] MEDS ORDERED: SODIUM CHLORIDE 0.9% 1,000 ML IV SCH (01:30)
[2023-06-20 08:27] VITALS: BP 132/74; PULSE 62; RESP 12; TEMP 97.9
--- NOTE | 2023-06-20 12:38 | P.HPIM ---
History of Present Illness 78-year-old pleasant male came in with complains of dizziness and the generalized weakness. Patient the lost his significant other few months ago since then patient has not been doing much. Patient denied any dizziness at this time. Patient appears to have some dementia. The patient was unable to give me a clear history of anything. Patient has low normal blood pressures with the systolics going down to around 105 which is probably causing his dizziness patient is also in acute renal failure with creatinine going up to 2 b aseline about 1.3 chronic kidney disease states the patient is also on metformin. Patient has an anion gap of 14 but lactic acid was never obtained patient doesn't have any evidence of infection at this time denied any cough or dysuria. Patient received IV fluids overnight with improvement in his dizziness. Blood pressure improved as well. REVIEW OF SYSTEMS: CONSTITUTIONAL: No fever, no malaise, no fatigue. HEENT: No recent visual problems or hearing problems. Denied any sore throat. CARDIOVASCULAR: No chest pain, orthopnea, PND, no palpitations, no syncope. PULMONARY: No shortness of breath, no cough, no hemoptysis. GASTROINTESTINAL: No diarrhea, no nausea, no vomiting, no abdominal pain. NEUROLOGICAL: No headaches, no weakness, no numbness. HEMATOLOGICAL: Denies any bleeding or petechiae. GENITOURINARY: Denies any burning micturition, frequency, or urgency. MUSCULOSKELETAL/RHEUMATOLOGICAL: Denies any joint pain, swelling, or any muscle pain. ENDOCRINE: Denies any polyuria or polydipsia. The rest of the 14-point review of systems is negative. PHYSICAL EXAMINATION: GENERAL: The patient is alert and oriented x2-3, not in any acute distress. Well developed, well nourished. HEENT: Pupils are round and equally reacting to light. EOMI. No scleral icterus. No conjunctival pallor. Normocephalic, atraumatic. No pharyngeal erythema. No thyromegaly. CARDIOVASCULAR: S1 and S2 present. No murmurs, rubs, or gallops. PULMONARY: Chest is clear to auscultation, no wheezing or crackles. ABDOMEN: Soft, nontender, nondistended, normoactive bowel sounds. No palpable organomegaly. MUSCULOSKELETAL: No joint swelling or deformity. EXTREMITIES: No cyanosis, clubbing, or pedal edema. NEUROLOGICAL: Gross neurological examination did not reveal any focal deficits. SKIN: No rashes. Assessment and plan -Dizziness: Secondary to dehydration and intravascular volume depletion patient was hydrated overnight can be discharged today patient doesn't have any systolic murmur and diuretic area although this can't be ruled out because of which I ordered echocardiogram for outpatient patient has a pacemaker paced rhythm. Hypotension is contributing to his dizziness as well because of which I'm cutting down the dose of ramipril -Hypothyroidism Hypertension patient is hypotensive because of which I'm cutting down the dose of enalapril , patient will remain on the metoprolol as he may have sick sinus syndrome. Patient does have a pacemaker -Diabetes mellitus patient has chronic kidney disease stage III is not a candidate for metformin for now patient will not be discharged any medications for diabetes mellitus if needed patient will be started on medication like Januvia as an outpatient patient also has anion gap lactic acid was not up and patient may have had lactic acidosis secondary to metformin -Hyperlipidemia -Hypertension -Gastroesophageal reflux disease -Depression patient was a necessary in the past which was discontinued patient will follow-up with [facility] Patient will be discharged today Past Medical History Past Medical History: Coronary Artery Disease (CAD), COPD, Diabetes Mellitus, GERD/Reflux, Hyperlipidemia, Hypertension, Thyroid Disorder Additional Past Medical History / Comment(s): CHRONIC BACK History of Any Multi-Drug Resistant Organisms: None Reported Past Surgical History: Appendectomy, Hernia Repair, Orthopedic Surgery Additional Past Surgical History / Comment(s): LEFT ARM, SINUS SURGERY, LEFT LEG Past Psychological History: No Psychological Hx Reported Smoking Status: Never smoker Past Alcohol Use History: None Reported Past Drug Use History: None Reported Medications and Allergies Home Medications Medication Instructions Recorded Confirmed Type Clopidogrel [Plavix] 75 mg PO DAILY 04/25/16 06/20/23 History Multivitamins, Thera [Multivitamin 1 tab PO DAILY 04/25/16 06/20/23 History (formulary)] Nitroglycerin Sl Tabs [Nitrostat] 0.4 mg SL Q5M PRN 04/25/16 06/20/23 History Atorvastatin [Lipitor] 40 mg PO DAILY 11/02/16 06/20/23 History Famotidine 40 mg PO DAILY 06/15/21 06/20/23 History Levothyroxine Sodium 125 mcg PO HS 06/15/21 06/20/23 History [facility]-3 Fatty Acids/Fish Oil [Fish 1 cap PO DAILY 06/15/21 06/20/23 History Oil 1,000 mg Softgel] Magnesium 250 mg PO DAILY 02/13/23 06/20/23 History Metoprolol Succinate (ER) [Toprol 25 mg PO DAILY 02/13/23 06/20/23 History XL] traMADol HCL/ACETAMINOPHEN 1 tab PO Q8H PRN 02/13/23 06/20/23 History [Ultracet 37.5-325] Timolol 0.5% Ophth Soln [Timoptic 1 drop BOTH EYES BID 06/20/23 06/20/23 History 0.5% Ophth Soln] ramipriL 5 mg PO DAILY #0 06/20/23 06/20/23 Rx Allergies Allergy/AdvReac Type Severity Reaction Status Date / Time morphine Allergy Dyspnea Verified 06/20/23 08:08 oxycodone HCl Allergy Dyspnea Verified 06/20/23 08:08 [From OxyContin] Physical Exam Vitals: Vital Signs Temp Pulse Pulse Resp BP BP Pulse Ox 06/20/23 10:19 62 96 06/20/23 07:00 97.9 F 62 12 132/74 100 06/20/23 06:00 60 18 108/66 98 06/20/23 04:00 60 16 119/77 95 06/20/23 00:00 61 16 100/60 98 06/19/23 23:00 60 16 106/57 100 06/19/23 22:15 60 16 108/55 100 06/19/23 22:00 60 16 104/56 100 06/19/23 21:44 89/58 06/19/23 21:30 60 15 89/56 100 06/19/23 21:26 97.6 F 67 16 85/48 97 Intake and Output 06/19/23 06/20/23 06/20/23 22:59 06:59 14:59 Intake Total 118 Balance 118 Intake: Oral 118 Other: # Bowel Movements 1 Weight 96.162 kg 96.162 kg Results CBC & Chem 7: 06/19/23 21:38 06/19/23 21:38 Labs: Abnormal Lab Results - Last 24 Hours (Table) 06/19/23 06/19/23 06/19/23 Range/Units 21:38 21:38 21:38 Plt Count 133 L (150-450) k/uL APTT 19.8 L (22.0-30.0) sec BUN 43 H (9-20) mg/dL Creatinine 2.06 H (0.66-1.25) mg/dL Glucose 118 H (74-99) mg/dL Urine Blood (Negative) Ur Leukocyte Esterase (Negative) Urine RBC (0-5) /hpf Urine WBC (0-5) /hpf Hyaline Casts (0-2) /lpf Urine Mucus (None) /hpf 06/19/23 Range/Units 23:59 Plt Count (150-450) k/uL APTT (22.0-30.0) sec BUN (9-20) mg/dL Creatinine (0.66-1.25) mg/dL Glucose (74-99) mg/dL Urine Blood Small H (Negative) Ur Leukocyte Esterase Moderate H (Negative) Urine RBC 21 H (0-5) /hpf Urine WBC 32 H (0-5) /hpf Hyaline Casts 7 H (0-2) /lpf Urine Mucus Rare H (None) /hpf Thrombosis Risk Factor Assmnt - Choose All That Apply Each Factor Represents 1 point: Obesity (BMI >25) Each Risk Factor Represents 3 Points: Age 75 years or older Thrombosis Risk Factor Assessment Total Risk Factor Score: 4 Thrombosis Risk Factor Assessment Level: Moderate Risk
--- NOTE | 2023-06-20 12:39 | P.DS ---
Providers Date of admission: 06/20/23 01:27 Attending physician: Valente So Primary care physician: Jarrett Blackwell [facility] Course: 78-year-old pleasant male came in with complains of dizziness and the generalized weakness. Patient the lost his significant other few months ago since then patient has not been doing much. Patient denied any dizziness at this time. Patient appears to have some dementia. The patient was unable to give me a clear history of anything. Patient has low normal blood pressures with the systolics going down to around 105 which is probably causing his dizziness patient is also in acute renal failure with creatinine going up to 2 baseline about 1.3 chronic kidney disease states the patient is also on metformin. Patient has an anion gap of 14 but lactic acid was never obtained patient doesn't have any evidence of infection at this time denied any cough or dysuria. Patient received IV fluids overnight with improvement in his dizziness. Blood pressure improved as well. REVIEW OF SYSTEMS: CONSTITUTIONAL: No fever, no malaise, no fatigue. HEENT: No recent visual problems or hearing problems. Denied any sore throat. CARDIOVASCULAR: No chest pain, orthopnea, PND, no palpitations, no syncope. PULMONARY: No shortness of breath, no cough, no hemoptysis. GASTROINTESTINAL: No diarrhea, no nausea, no vomiting, no abdominal pain. NEUROLOGICAL: No headaches, no weakness, no numbness. HEMATOLOGICAL: Denies any bleeding or petechiae. GENITOURINARY: Denies any burning micturition, frequency, or urgency. MUSCULOSKELETAL/RHEUMATOLOGICAL: Denies any joint pain, swelling, or any muscle pain. ENDOCRINE: Denies any polyuria or polydipsia. The rest of the 14-point review of systems is negative. PHYSICAL EXAMINATION: GENERAL: The patient is alert and oriented x2-3, not in any acute distress. Well developed, well nourished. HEENT: Pupils are round and equally reacting to light. EOMI. No scleral icterus. No conjunctival pallor. Normocephalic, atraumatic. No pharyngeal erythema. No thyromegaly. CARDIOVASCULAR: S1 and S2 present. No murmurs, rubs, or gallops. PULMONARY: Chest is clear to auscultation, no wheezing or crackles. ABDOMEN: Soft, nontender, nondistended, normoactive bowel sounds. No palpable organomegaly. MUSCULOSKELETAL: No joint swelling or deformity. EXTREMITIES: No cyanosis, clubbing, or pedal edema. NEUROLOGICAL: Gross neurological examination did not reveal any focal deficits. SKIN: No rashes. Assessment and plan -Dizziness: Secondary to dehydration and intravascular volume depletion patient was hydrated overnight can be discharged today patient doesn't have any systolic murmur and diuretic area although this can't be ruled out because of which I ordered echocardiogram for outpatient patient has a pacemaker paced rhythm. Hypotension is contributing to his dizziness as well because of which I'm cutting down the dose of ramipril -Hypothyroidism Hypertension patient is hypotensive because of which I'm cutting down the dose of enalapril , patient will remain on the metoprolol as he may have sick sinus syndrome. Patient does have a pacemaker -Diabetes mellitus patient has chronic kidney disease stage III is not a candidate for metformin for now patient will not be discharged any medications for diabetes mellitus if needed patient will be started on medication like Januvia as an outpatient patient also has anion gap lactic acid was not up and patient may have had lactic acidosis secondary to metformin -Hyperlipidemia -Hypertension -Gastroesophageal reflux disease -Depression patient was a necessary in the past which was discontinued patient will follow-up with [facility] Patient will be discharged today Patient Condition at Discharge: Fair Plan - Discharge Summary New Discharge Prescriptions: Continue Multivitamins, Thera [Multivitamin (formulary)] 1 tab PO DAILY Nitroglycerin Sl Tabs [Nitrostat] 0.4 mg SL Q5M PRN PRN Reason: Chest Pain Clopidogrel [Plavix] 75 mg PO DAILY Atorvastatin [Lipitor] 40 mg PO DAILY Famotidine 40 mg PO DAILY Magnesium 250 mg PO DAILY Timolol 0.5% Ophth Soln [Timoptic 0.5% Ophth Soln] 1 drop BOTH EYES BID Levothyroxine Sodium 125 mcg PO HS [place]-3 Fatty Acids/Fish Oil [Fish Oil 1,000 mg Softgel] 1 cap PO DAILY traMADol HCL/ACETAMINOPHEN [Ultracet 37.5-325] 1 tab PO Q8H PRN PRN Reason: Pain Metoprolol Succinate (ER) [Toprol XL] 25 mg PO DAILY Changed ramipriL 5 mg PO DAILY #0 Discontinued metFORMIN HCL [Glucophage] 500 mg PO BID Potassium Chloride 10 meq PO Q48H Furosemide [Lasix] 20 mg PO Q48H Discharge Medication List Clopidogrel [Plavix] 75 mg PO DAILY 04/25/16 [History] Multivitamins, Thera [Multivitamin (formulary)] 1 tab PO DAILY 04/25/16 [History] Nitroglycerin Sl Tabs [Nitrostat] 0.4 mg SL Q5M PRN 04/25/16 [History] Atorvastatin [Lipitor] 40 mg PO DAILY 11/02/16 [History] Famotidine 40 mg PO DAILY 06/15/21 [History] Levothyroxine Sodium 125 mcg PO HS 06/15/21 [History] [place]-3 Fatty Acids/Fish Oil [Fish Oil 1,000 mg Softgel] 1 cap PO DAILY 06/15/21 [History] Magnesium 250 mg PO DAILY 02/13/23 [History] Metoprolol Succinate (ER) [Toprol XL] 25 mg PO DAILY 02/13/23 [History] traMADol HCL/ACETAMINOPHEN [Ultracet 37.5-325] 1 tab PO Q8H PRN 02/13/23 [History] Timolol 0.5% Ophth Soln [Timoptic 0.5% Ophth Soln] 1 drop BOTH EYES BID 06/20/23 [History] ramipriL 5 mg PO DAILY #0 06/20/23 [Rx] Follow up Appointment(s)/Referral(s): [facility] [NON-STAFF] - 1 Week Jarrett Solis DO [Primary Care Provider] - 3 Days Discharge Disposition: HOME SELF-CARE
== END 2023-06-20 14:30 | disposition home or self-care (01) ==
LOC: EC 21:03 → 6NMEDSUR 06-20 01:27
PROVIDERS: ADMIT Hospitalist; ATTEND Hospitalist
DX: E86.0 Dehydration (principal); R42 Dizziness and giddiness; E03.9 Hypothyroidism, unspecified; E11.22 Type 2 diabetes mellitus with diabetic chronic kidney disease; I12.9 Hypertensive chronic kidney disease with stage 1 through stage 4 chronic kidney disease, or unspecified chronic kidney disease; N18.30 Chronic kidney disease, stage 3 unspecified; J44.9 Chronic obstructive pulmonary disease, unspecified; I25.10 Atherosclerotic heart disease of native coronary artery without angina pectoris; K21.9 Gastro-esophageal reflux disease without esophagitis; E78.5 Hyperlipidemia, unspecified; F32.A Depression, unspecified; Z20.822 Contact with and (suspected) exposure to COVID-19; Z95.0 Presence of cardiac pacemaker; Z79.02 Long term (current) use of antithrombotics/antiplatelets; Z79.84 Long term (current) use of oral hypoglycemic drugs; Z79.899 Other long term (current) drug therapy; Z79.890 Hormone replacement therapy; Z88.5 Allergy status to narcotic agent
CPT/HCPCS: 96360; 99285; 36415; 93005; 80053; 82330; 83605; 83735; 84484; 85025; 85610; 85730; 81001; 87636; 71045; G0378